=== PATIENT | female | born 1955 | race Caucasian/White ===

== ENCOUNTER → 2017-02-26 | Outpatient (CLI) | payer OTHER ==
--- NOTE | 2017-02-26 17:02 | RAD ---
Pelvic ultrasound to include transabdominal and transvaginal imaging 02/26/2017 Clinical history: Pelvic pain with heavy vaginal bleeding and clot formation. Technique: Using the distended urinary bladder as a sonographic window, a real-time ultrasound examination of the pelvis was performed. Additionally in an attempt to better evaluate the uterus and adnexa, a transvaginal ultrasound study was performed. Multiple images were obtained. Findings: The uterus is mildly enlarged measuring 12.7 x 8.7 x 5.8 cm in longitudinal, transverse, and AP dimensions. The endometrial echo complex is difficult to evaluate due to the presence of complex fluid within the endometrial canal which measures 2.8 cm in thickness. There appears to be dependent blood products within the fluid. No focal abnormality of the uterus is seen. Both ovaries are within normal limits in size and echogenicity. The right ovary measures 2.4 x 2.0 x 1.6 cm in size. The left upper measures 2.3 x 2.3 x 2.0 cm in size. No adnexal mass is seen. No free fluid is noted. Impression: The uterus is mildly enlarged. The endometrial echo complex is difficult to evaluate due to the presence of fluid and blood products within the endometrial canal.
== END | disposition home or self-care (01) ==
LOC: US 14:13
PROVIDERS: ATTEND Nurse Practitioner Family
DX: N85.2 Hypertrophy of uterus (principal); N93.8 Other specified abnormal uterine and vaginal bleeding
CPT/HCPCS: 76830; 76856

== ENCOUNTER → 2019-11-25 | Outpatient (CLI) | payer MEDICAID ==
--- NOTE | 2019-11-25 14:20 | RAD ---
Right lower extremity venous real time grayscale, color and spectral duplex ultrasound was performed. History: Right-sided leg pain with swelling Comparison: None The right common femoral, femoral, and popliteal veins demonstrate anechoic lumina, full compressibility, augmentable waveforms, and cephalad color Doppler flow. The posterior tibial are also patent. Normal flow is also seen in the cephalad portion of the saphenous vein. Impression: No evidence of DVT in the right lower extremity. Electronically signed by: Mark Motta MD (11/25/2019 2:18 PM) [facility]
== END | disposition home or self-care (01) ==
LOC: US 13:09
PROVIDERS: ATTEND Family Medicine
DX: M79.604 Pain in right leg (principal); I99.9 Unspecified disorder of circulatory system
CPT/HCPCS: 93971

== ENCOUNTER 2020-06-12 22:30 | Inpatient (IN) | payer MEDICARE, MEDICAID ==
[~2020-06-12] VITALS: Ht 167.6 cm; Wt 129.3 kg
[2020-06-12 23:55] VITALS: BP 121/88
[2020-06-13] MEDS ORDERED: CYAN500T17 PO (01:40)
[2020-06-13] MEDS ORDERED: ASCO500C PO (01:40)
[2020-06-13] MEDS ORDERED: LISI10TA2 PO (01:40)
[2020-06-13] MEDS ORDERED: DOCU-109 PO (01:40)
[2020-06-13] MEDS ORDERED: FURO-69 PO (01:40)
[2020-06-13] MEDS ORDERED: ATOR20TA PO (01:40)
[2020-06-13] MEDS ORDERED: ASPI81TA59 PO (01:40)
[2020-06-13] MEDS ORDERED: FLUO20CA16 PO (01:40)
[2020-06-13] MEDS ORDERED: UMEC1DIS IH (01:40)
[2020-06-13] MEDS ORDERED: METF500S5 PO (01:40)
[2020-06-13] MEDS ORDERED: ALBU0.63 NEB (01:40)
[2020-06-13] MEDS ORDERED: MELA1TAB9 PO (01:40)
[2020-06-13] MEDS ORDERED: CHOL500021 PO (01:40)
[2020-06-13] MEDS ORDERED: CELE100C PO (01:40)
[2020-06-13] MEDS ORDERED: POTA10TA5 PO (01:40)
[2020-06-13] MEDS ORDERED: FERR325T14 PO (01:40)
[2020-06-13] MEDS ORDERED: IPRATRPIUM/ALBUTEROL 0.5/2.5MG 3 ML NEBU. ONE (04:26)
[2020-06-13] MEDS: IPRATRPIUM/ALBUTEROL 0.5/2.5MG 3 ML NEBU. NEB SCH ×4 (04:35→20:48)
[2020-06-13] MEDS: methylPREDNISolone SOD SUCC PF 40 MG/ML VIAL. IV SCH ×3 (06:31→21:23)
[2020-06-13 06:40] VITALS: BP 107/69
[2020-06-13] MEDS: LISINOPRIL 10 MG TABLET PO SCH (09:11)
[2020-06-13] MEDS: FLUoxetine HCL 20 MG CAPSULE PO SCH (09:11)
[2020-06-13] MEDS: metFORMIN 500 MG TABLET PO SCH ×2 (09:11→17:52)
[2020-06-13] MEDS: ASPIRIN CHEWABLE 81 MG TABLET. PO SCH (09:11)
--- NOTE | 2020-06-13 09:22 | HP ---
ADMIT DATE: 06/12/2020 ATTENDING PHYSICIAN: Dr. Quan. CHIEF COMPLAINT: Shortness of breath. HISTORY OF PRESENT ILLNESS: The patient is a 64-year-old female who lives independently in an apartment in [facility]. She has end-stage oxygen dependent COPD, for the last 2 years, she is on continuous supplemental oxygen 2 liters by nasal cannula with an oxygen concentrator and portable device. She developed new onset for 24 hours, increasing shortness of breath, dyspnea with minimal exertion, dry nonproductive cough. No fevers, chills or exposures. She was seen in the Emergency Department at [facility]. The ER physician there evaluated her. X-rays demonstrated mild cardiomegaly, no acute infiltrates. Lab work was fairly unremarkable. She was not febrile. She was diagnosed with an exacerbation of COPD and acute on chronic respiratory failure. She recommended hospitalization since last month. [facility] has closed. They usually transfer the patient to [facility] on the [place]. The patient wanted to stay close to her home and therefore I got a call from the Emergency Room doctor, her name was Dr. Lieberman, requesting transfer here for inpatient care. We are grateful for the kind referral. When I saw her, she was breathing a little better. Her lungs had diminished breath sounds. I reviewed her chart. She is admitted then with acute on chronic respiratory failure and exacerbation of COPD. PAST MEDICAL HISTORY: Significant for smoking history up to 4 years ago. She has essential hypertension, degenerative arthritis, morbid obesity, questionable history of cardiac issues. ALLERGIES: She has no known drug allergies. CURRENT MEDICINES: Include albuterol, vitamin C, aspirin, Lipitor, Celebrex, cholecalciferol, cyanocobalamin, docusate, iron, Prozac 20 mg daily, Lasix, lisinopril, melatonin, metformin, potassium and Anoro Ellipta. SOCIAL HISTORY: No alcohol use. She smoked cigarettes up to 4 years ago. She denied any secondhand cigarette exposure. FAMILY HISTORY: Mom at age 74 of Alzheimer's disease. Father of pancreatic cancer. She is single. She is disabled. She lives alone in [address] housing. She has 2 children that are grown. REVIEW OF SYSTEMS: Significant for the oxygen dependency. She does not get around too much. A sister took her out shopping for groceries. No other recent travel. No fevers or chills. She has some orthopnea. She denied any recent exposure to COVID-19. All other systems reviewed and turned to be negative. PHYSICAL EXAMINATION: GENERAL: When I saw her, this is a pleasant female who was fairly alert. INITIAL VITAL SIGNS: Showed a blood pressure 121/88, pulse is 89 and regular, temperature 98.1 degrees Fahrenheit, oxygen saturation 98% on 3 liters nonrebreather mask. HEENT: Head is without trauma. Pupils are reactive. Sclerae nonicteric. Oropharynx is clear. NECK: Supple, no bruits. LUNGS: Good air movement. Minimal wheezing noted in upper airways. CARDIOVASCULAR: Showed distant heart tones. No obvious gallops. Peripheral pulses are palpable and full. ABDOMEN: Morbidly obese, protuberant, large pannus. No organomegaly. Bowel sounds were hypoactive. EXTREMITIES: Show trace edema. NEUROLOGIC: Focally intact. SKIN: Warm and dry. LABORATORY DATA: X-ray studies and labs were reviewed from [facility]. ASSESSMENT: 1. This 64-year-old female has acute on chronic respiratory failure. 2. Oxygen-dependent chronic obstructive pulmonary disease. 3. Morbid obesity. 4. Essential hypertension. 5. Type 2 diabetes. 6. Degenerative arthritis. 7. Essential hypertension. PLAN: 1. Admit to the inpatient unit. 2. Nebulizer therapy continued. 3. Empiric antibiotics. 4. Empiric Solu-Medrol. 5. We will monitor her blood sugars accordingly. HAWA QUAN MD DR: TRICIA/diego JOB#: [id number] / [id number] PASHA Kate MD
[2020-06-13 11:37] VITALS: BP 119/74
[2020-06-13 15:00] VITALS: BP 112/65
[2020-06-13 19:58] VITALS: BP 127/77
[2020-06-13] MEDS: MELATONIN 3 MG TABLET PO SCH (21:23)
[2020-06-13] MEDS: ATORVASTATIN CALCIUM 20 MG TABLET PO SCH (21:23)
[2020-06-14] MEDS: IPRATRPIUM/ALBUTEROL 0.5/2.5MG 3 ML NEBU. NEB SCH ×4 (05:16→20:20)
[2020-06-14 05:18] VITALS: BP 131/82
[2020-06-14] MEDS: methylPREDNISolone SOD SUCC PF 40 MG/ML VIAL. IV SCH (06:02)
[2020-06-14] MEDS: FLUoxetine HCL 20 MG CAPSULE PO SCH (08:10)
[2020-06-14] MEDS: metFORMIN 500 MG TABLET PO SCH ×2 (08:10→16:23)
[2020-06-14] MEDS: LISINOPRIL 10 MG TABLET PO SCH (08:10)
[2020-06-14] MEDS: ASPIRIN CHEWABLE 81 MG TABLET. PO SCH (08:10)
[2020-06-14] MEDS ORDERED: ALPRAZolam 0.5 MG TABLET PO PRN (09:15)
--- NOTE | 2020-06-14 09:27 | PN ---
DATE: 06/14/2020 ATTENDING PHYSICIAN: Dr. Quan. CHIEF COMPLAINT: Shortness of breath. SUBJECTIVE: The patient is doing better. She is less dyspneic. She still has a strong anxiety component regarding the stress and underlying depression. The Ativan yesterday has helped. OBJECTIVE FINDINGS: VITAL SIGNS: Blood sugar today is 288 mg/dL due to the Solu-Medrol ordered for her lungs. This will be curtailed. Her blood pressure is 131/82, pulse is 72 and regular, temperature 98.4 degrees Fahrenheit, and her oxygen saturations are at 96% on 2 liters by nasal cannula. HEENT: Head is without trauma. Pupils are reactive. Sclerae nonicteric. Oropharynx clear. NECK: Supple. LUNGS: The wheezing has subsided. She has fairly good air movement. There is no rhonchi. CARDIOVASCULAR: Showed distant heart tones. No obvious gallops. Peripheral pulses are palpable and full. ABDOMEN: Morbidly obese, protuberant. No organomegaly. Bowel sounds are hypoactive. EXTREMITIES: Showed no cyanosis or edema. NEUROLOGIC: Focally intact. SKIN: Warm and dry. ASSESSMENT: 1. A 64-year-old female with acute on chronic respiratory failure. 2. Oxygen-dependent chronic obstructive pulmonary disease. 3. Morbid obesity. 4. Essential hypertension. 5. Type 2 diabetes. 6. Depression with anxiety. PLAN: 1. Continue antibiotics and breathing treatment as ordered. 2. Add Xanax. 3. Discontinue Solu-Medrol. 4. We will monitor her sugars. 5. Followup chest x-ray. 6. Tentative discharge plans tomorrow. HAWA QUAN MD DR: TRICIA/diego JOB#: [id number] / [id number] PASHA Kate MD
[2020-06-14] MEDS: ALPRAZolam 0.5 MG TABLET PO SCH ×3 (10:35→20:46)
[2020-06-14 11:15] VITALS: BP 119/71
--- NOTE | 2020-06-14 13:31 | RAD ---
EXAM: PORTABLE CHEST 1V INDICATION: Reason: ACUTE ON CHRONIC RESPIRATORY FAILURE / Spl. Instructions: / History: . TECHNIQUE: Single view COMPARISON: None FINDINGS: Heart is mildly enlarged. The great vessels appear unremarkable. There is no hilar or mediastinal mass. Lungs show minimal pulmonary vascular congestion, with linear opacities of the right lung base.. There is no pleural effusion or pneumothorax. There are no significant osseous abnormalities. IMPRESSION: Cardiomegaly with pulmonary vascular congestion and linear opacities at the right lung base. Consider follow-up to resolution. Electronically signed by: John Vasquez MD (06/14/2020 1:28 PM) [id number]
[2020-06-14 15:14] VITALS: BP 114/65
[2020-06-14 18:31] VITALS: BP 133/70
[2020-06-14] MEDS: MELATONIN 3 MG TABLET PO SCH (20:46)
[2020-06-14] MEDS: LACTOBACILLUS RHAMNOSUS GG 1 CAPSULE. PO SCH (20:47)
[2020-06-14] MEDS: ATORVASTATIN CALCIUM 20 MG TABLET PO SCH (20:47)
[2020-06-15] MEDS: IPRATRPIUM/ALBUTEROL 0.5/2.5MG 3 ML NEBU. NEB SCH ×2 (05:30→11:03)
[2020-06-15 06:00] LABS: CALCIUM 8.5 mg/dL (8.5-10.1); CREATININE 0.8 mg/dL (0.6-1.0); GFR 72.4; POTASSIUM 3.6 mmol/L (3.5-5.1)
[2020-06-15 07:20] VITALS: BP 101/65
[2020-06-15 07:25] LABS: BASO % 0 % (0-3); EOS % 0 % (0-3); HEMATOCRIT 26.6 % (36.0-47.0); LYMPH # 1.7 x10^3/uL (1.0-4.8); LYMPH % 20 % (24-48); MEAN CORPUSCULAR HEMOGLOBIN 22 pg (25-35); MEAN CORPUSCULAR HGB CONC 30 g/dL (31-37); MEAN CORPUSCULAR VOLUME 73 fL (79-100); MONO # 0.8 x10^3/uL (0.0-1.1); MONO % 9 % (0-9); NEUT # 6.1 x10^3uL (1.8-7.7); NEUT % 70 % (31-73); PLATELET COUNT 357 x10^3/uL (140-400); RED BLOOD COUNT 3.63 x10^6/uL (3.50-5.40); RED CELL DISTRIBUTION WIDTH 20.3 % (11.5-14.5); WHITE BLOOD COUNT 8.7 x10^3/uL (4.0-11.0)
[2020-06-15 07:30] LABS: ALBUMIN 2.8 g/dL (3.4-5.0); TOTAL BILIRUBIN 0.1 mg/dL (0.2-1.0); TOTAL PROTEIN 6.2 g/dL (6.4-8.2)
[2020-06-15 07:40] LABS: DIRECT BILIRUBIN 0.1 mg/dL (0.0-0.2)
[2020-06-15] MEDS: FLUoxetine HCL 20 MG CAPSULE PO SCH (07:47)
[2020-06-15] MEDS: ALPRAZolam 0.5 MG TABLET PO SCH (07:48)
[2020-06-15] MEDS: LACTOBACILLUS RHAMNOSUS GG 1 CAPSULE. PO SCH (07:48)
[2020-06-15] MEDS: ASPIRIN CHEWABLE 81 MG TABLET. PO SCH (07:48)
[2020-06-15] MEDS: metFORMIN 500 MG TABLET PO SCH (07:48)
[2020-06-15] MEDS: LISINOPRIL 10 MG TABLET PO SCH (07:48)
[2020-06-15 08:37] LABS: PLT ESTIMATE ADEQUATE (ADEQUATE)
[2020-06-15 08:38] LABS: OVALOCYTES FEW
[2020-06-15 08:40] LABS: POLYCHROMASIA PRESENT
[2020-06-15 08:42] LABS: HYPOCHROMIA PRESENT
[2020-06-15 08:44] LABS: MICROCYTOSIS PRESENT
[2020-06-15 11:20] VITALS: BP 122/78
--- NOTE | 2020-06-15 14:37 | DS ---
DATE OF DISCHARGE: 06/15/2020 HOSPITAL COURSE: The patient is a 64-year-old female patient who was seen initially at [facility] Emergency Room with increasing shortness of breath, dry nonproductive cough. Her x-ray showed mild cardiomegaly with no acute infiltrate. Her lab work was unremarkable. She was afebrile and was diagnosed with exacerbation of chronic obstructive pulmonary disease with acute on chronic respiratory failure. The ER physician recommended admission to the hospital; however, the patient did not want to go to [facility] the [place] and therefore, she was admitted directly to [facility] for further evaluation and treatment. She was treated with Solu-Medrol as well as IV antibiotic and according to Dr. Baker, she was extremely anxious also and was started on Xanax. When I saw her this afternoon, she was resting slightly propped up in bed, clearly in no apparent respiratory distress. On questioning her, she denied any complaints, in particular any chest pain, denied any shortness of breath. Did complain of cough that is mostly dry. Denied any swelling of the legs. She ambulates with a walker without any difficulty. PHYSICAL EXAMINATION: GENERAL: When I examined her, she looked pale, no jaundice, cyanosis or thyromegaly. No jugular venous distention. No limb edema. VITAL SIGNS: Her heart rate was 75, blood pressure was 122/78, temperature 97.9, respiratory rate was 18 and oxygen saturation was 95% on 2 liters of oxygen. HEAD, EYES, EARS, NOSE AND THROAT: Showed normocephalic, atraumatic. NECK: Supple. HEART: Showed normal first and second heart sounds. No gallop or murmur. CHEST: Clear to auscultation. No crepitation or rhonchi. ABDOMEN: Distended, soft, nontender. NEUROLOGIC: She is awake, alert, responding appropriately. All cranial nerves are intact. EXTREMITIES: She moves extremities without difficulty. She ambulates with a walker. LABORATORY DATA: Her lab work showed a white cell count of 8700, hemoglobin 8, hematocrit 26, MCV 73 and platelet count 357,000. Her chemistry showed a serum sodium 141, potassium 3.6, chloride 102, bicarbonate 34, anion gap of 5, BUN 26, creatinine 0.8, estimated GFR was 72 mL per minute. Her glucose 115, calcium was 8.5. Total bilirubin, AST, ALT, alkaline phosphatase were normal. Total protein was 6.2, albumin was 2.8. DISCHARGE MEDICATIONS: The patient was discharged home to continue on following medications: Alprazolam 0.5 mg 3 times a day, melatonin 9 mg at bedtime, atorvastatin 20 mg at bedtime, metformin 500 mg twice a day, lisinopril 10 mg once a day, fluoxetine 20 mg daily, aspirin 81 mg once a day and nebulized albuterol and Atrovent 4 times a day. FINAL DISCHARGE DIAGNOSES: 1. Acute chronic obstructive pulmonary disease exacerbation. 2. Acute on chronic hypoxic respiratory failure. 3. Hypertension. 4. Type 2 diabetes mellitus. 5. Morbid obesity. 6. Degenerative joint disease. HORACE GARCIA MD DR: OMER/diego JOB#: [id number] / [id number]
== END 2020-06-15 15:02 | disposition home or self-care (01) | DRG 189 ==
LOC: 1 SOUTH 22:30
PROVIDERS: ADMIT Hospitalist; ATTEND Internal Medicine
DX: J96.21 Acute and chronic respiratory failure with hypoxia (principal); J44.1 Chronic obstructive pulmonary disease with (acute) exacerbation; Z68.42 Body mass index [BMI] 45.0-49.9, adult; E11.9 Type 2 diabetes mellitus without complications; E66.01 Morbid (severe) obesity due to excess calories; F41.8 Other specified anxiety disorders; I10 Essential (primary) hypertension; M19.90 Unspecified osteoarthritis, unspecified site; Z80.0 Family history of malignant neoplasm of digestive organs; Z82.0 Family history of epilepsy and other diseases of the nervous system; Z87.891 Personal history of nicotine dependence; Z99.81 Dependence on supplemental oxygen
CPT/HCPCS: 36415; 71045; 80048; 80076; 82947; 85025; 94640; 94760; J0696; J2060; J2920

== ENCOUNTER 2020-06-28 11:42 | Inpatient (IN) | payer MEDICARE, MEDICAID ==
[~2020-06-28] VITALS: Ht 167.6 cm; Wt 123.2 kg
[~2020-06-28 11:42] MED LIST: ALBU0.63 NEB; ASCO500C PO; ASPI81TA59 PO; ATOR20TA PO; CELE100C PO; CHOL500021 PO; CYAN500T17 PO; DOCU-109 PO; FERR325T14 PO; FLUO20CA16 PO; FURO-69 PO; LISI10TA2 PO; MELA1TAB9 PO; METF500S5 PO; POTA10TA5 PO; UMEC1DIS IH
--- NOTE | 2020-06-28 11:44 | PHYS DOC ---
Past History Past Medical History: CHF, COPD, CVA, Diabetes, Hypertension Past Medical History hyperlipidemia Past Surgical History: Hip Replacement Smoking: Quit Greater Than 1 Year Alcohol Use: None Drug Use: None General Adult EDM: Chief Complaint: short of air HPI: HPI: Patient is a 64 year old female who presents for evaluation of moderate shortness of air. Symptoms been progressing for the past couple of days but particular worse the past few hours. EMS was contacted when her home nurse noted that her sats were 88% on her baseline 3 L. Patient has mild to moderate conversational dyspnea on arrival as well as tachypnea. Furthermore patient is complaining of some pain and pressure in her chest. Patient has been admitted to the hospital in the past week for similar complaints. Patient has longstanding COPD and congestive heart failure. Patient has to sit up so that she can breathe more easily. Sats are 95% currently on 3 L. Patient had a negative covert swab less than 2 months ago. Patient is isolated at home at baseline. There is no known exposure to COVID Review of Systems: Review of Systems: Constitutional: Denies fever or chills Eyes: Denies change in visual acuity HENT: Denies nasal congestion or sore throat Respiratory: Denies cough moderate shortness of breath Cardiovascular: has chest pain and edema GI: Denies abdominal pain, nausea, vomiting, bloody stools or diarrhea : Denies dysuria Musculoskeletal: Denies back pain or joint pain Integument: Denies rash Neurologic: Denies headache, focal weakness or sensory changes Endocrine: Denies polyuria or polydipsia Lymphatic: Denies swollen glands Psychiatric: Denies depression or anxiety Heart Score: Risk Factors: Risk Factors: DM, Current or recent (<one month) smoker, HTN, HLP, family history of CAD, obesity. Risk Scores: Score 0 - 3: 2.5% MACE over next 6 weeks - Discharge Home Score 4 - 6: 20.3% MACE over next 6 weeks - Admit for Clinical Observation Score 7 - 10: 72.7% MACE over next 6 weeks - Early Invasive Strategies Allergies: Allergies: Allergies Coded Allergies Type Severity Reaction Last Updated Verified No Known Drug Allergies 06/13/20 No Physical Exam: PE: Constitutional: Well developed, moderate acute distress, mild toxic appearance. [] HENT: Normocephalic, atraumatic, bilateral external ears normal, oropharynx moist, no oral exudates, nose normal. [] Eyes: PERRL, EOMI, conjunctiva normal, no discharge. [] Neck: Normal range of motion, no tenderness, supple, no stridor. [] Cardiovascular:Heart rate regular rhythm, no murmur [] Lungs & Thorax: diminished breath sounds bilaterally, tachypnea and conversational dyspnea [] Abdomen: Bowel sounds normal, soft, no tenderness, no masses. [] Skin: Warm, dry, no erythema, no rash. [] Back: No tenderness, no CVA tenderness. [] Extremities: No tenderness, no cyanosis, clubbing, ROM intact, edema is present. [] Neurologic: Alert and oriented, normal motor function, normal sensory function, no focal deficits noted. [] Psychologic: flat Affect, judgement normal, mood abnormal. [] Current Patient Data: Labs: Laboratory Tests Test 06/28/20 12:02 White Blood Count 12.5 x10^3/uL Red Blood Count 4.20 x10^6/uL Hemoglobin 9.3 g/dL Hematocrit 31.3 % Mean Corpuscular Volume 74 fL Mean Corpuscular Hemoglobin 22 pg Mean Corpuscular Hemoglobin Concent 30 g/dL Red Cell Distribution Width 19.6 % Platelet Count 396 x10^3/uL Neutrophils (%) (Auto) 76 % Lymphocytes (%) (Auto) 12 % Monocytes (%) (Auto) 7 % Eosinophils (%) (Auto) 4 % Basophils (%) (Auto) 1 % Neutrophils # (Auto) 9.5 x10^3uL Lymphocytes # (Auto) 1.5 x10^3/uL Monocytes # (Auto) 0.8 x10^3/uL Eosinophils # (Auto) 0.5 x10^3/uL Basophils # (Auto) 0.1 x10^3/uL Platelet Estimate Pending Sodium Level 142 mmol/L Potassium Level 4.2 mmol/L Chloride Level 100 mmol/L Carbon Dioxide Level 32 mmol/L Anion Gap 10 Blood Urea Nitrogen 22 mg/dL Creatinine 0.9 mg/dL Estimated GFR (Cockcroft-Gault) 63.2 BUN/Creatinine Ratio 24 Glucose Level 114 mg/dL Lactic Acid Level 3.3 mmol/L Calcium Level 9.1 mg/dL Total Bilirubin 0.2 mg/dL Aspartate Amino Transf (AST/SGOT) 11 U/L Alanine Aminotransferase (ALT/SGPT) 13 U/L Alkaline Phosphatase 120 U/L Troponin I Quantitative < 0.017 ng/mL HF-Uda-M-Type Natriuretic Peptide 198 pg/mL Total Protein 7.0 g/dL Albumin 3.4 g/dL Albumin/Globulin Ratio 0.9 Current Medications Medications (Trade) Dose Ordered Sig/Tara Route PRN Reason Start Time Stop Time Status Last Admin Dose Admin Sodium Chloride (Normal Saline Flush) 10 ml QSHIFT PRN IV AFTER MEDS AND BLOOD DRAWS 06/28/20 11:45 Methylprednisolone Sodium Succinate (SOLU-Medrol 125MG VIAL) 125 mg 1X ONCE IV 06/28/20 12:00 06/28/20 12:01 DC 06/28/20 12:20 Albuterol Sulfate (Ventolin) 2.5 mg 1X ONCE NEB 06/28/20 12:30 06/28/20 12:31 DC 06/28/20 12:28 Albuterol/ Ipratropium (Duoneb) 3 ml STK-MED ONCE .ROUTE 06/28/20 12:26 06/28/20 12:26 DC Ceftriaxone Sodium 1 gm/ Sodium Chloride 50 ml @ 100 mls/hr 1X ONCE IV 06/28/20 12:40 06/28/20 13:09 Albuterol/ Ipratropium (Duoneb) 3 ml 1X ONCE NEB 06/28/20 12:45 06/28/20 12:46 DC EKG: EKG: Sinus tachycardia rate 110, leftward axis, some artifact present, otherwise unremarkable EKG [] Radiology/Procedures: Radiology/Procedures: [][address] [address] IMAGING REPORT Signed PATIENT: CARMENCITA SCHILLING ACCOUNT: [id number] : 1955 LOCATION: ER AGE: 64 SEX: F EXAM STATUS: PRE ER ORD. PHYSICIAN: MATTHEW CROSS DO REASON: short of air PROCEDURE: PORTABLE CHEST 1V Chest one view HISTORY: Shortness of breath Comparison 06/14/2020 Bilateral infiltrates appear mildly more prominent than on the June 14 study. Heart and pulmonary vasculature appear similar. No significant effusion. No pneumothorax IMPRESSION: Mild interval increase in bilateral interstitial infiltrates Electronically signed by: Oneil Downing MD (06/28/2020 12:21 PM) [id number] DICTATED AND SIGNED BY: ONEIL DOWNING MD DATE: 06/28/20 1221 CC: RAQUEL SALMON; MATTHEW CROSS DO ~ Course & Med Decision Making: Course & Med Decision Making Pertinent Labs and Imaging studies reviewed. (See chart for details) 1254 Case was discussed with Dr. Andino the hospital service. Patient will be admitted to the ICU and as requested we will give Lasix 80 mg IV. Patient will admitted for acute on chronic respiratory failure. Patient was already given Solu-Medrol as well as 2 neb treatments with some improvement of symptoms. BiPAP was put on standby. Pt is a full code. ABG showed a pH of 7.39. PCO2 53, PO2 68, 32 bicarb, 93% sat on 3 L nasal cannula Dragon Disclaimer: [facility] Disclaimer: This electronic medical record was generated, in whole or in part, using a voice recognition dictation system. Departure Departure: Impression: Primary Impression: Acute and chronic respiratory failure with hypoxia Additional Impression: COPD exacerbation Disposition: ADMITTED INPATIENT Admitting Physician: Ambrose Andino Condition: STABLE Referrals: RAQUEL SALMON (PCP) Justification of Admission: Justification of Admission: Justification of Admission Dx: Yes Respiratory Failure: Severe Resp Distress COVID-19 Assessment COVID-19 Patient Risks: Age 65 or older: No Sign of co-morbidity: Yes Exp to person + for COVID: No Exp to PUI: No Travel from affected area: No Lower respiratory symptoms: Yes Fever: No Other: No PPE Use: Full PPE with N95 mask or PAPR: Yes Critical Care Time Critical care time was 30 minutes exclusive of procedures. MATTHEW CROSS DO Jun 28, 2020 11:44
[2020-06-28] MEDS ORDERED: 0.9 % SODIUM CHLORIDE 10 ML DISP.SYRIN. IV PRN (11:45)
[2020-06-28] MEDS ORDERED: methylPREDNISolone SOD SUCC PF 125 MG/2 ML VIAL. IV ONE (12:00)
[2020-06-28 12:17] LABS: BASO # 0.1 x10^3/uL (0.0-0.2); BASO % 1 % (0-3); EOS # 0.5 x10^3/uL (0.0-0.7); EOS % 4 % (0-3); HEMATOCRIT 31.3 % (36.0-47.0); HEMOGLOBIN 9.3 g/dL (12.0-15.5); LYMPH # 1.5 x10^3/uL (1.0-4.8); LYMPH % 12 % (24-48); MEAN CORPUSCULAR HEMOGLOBIN 22 pg (25-35); MEAN CORPUSCULAR HGB CONC 30 g/dL (31-37); MEAN CORPUSCULAR VOLUME 74 fL (79-100); MONO # 0.8 x10^3/uL (0.0-1.1); MONO % 7 % (0-9); NEUT # 9.5 x10^3uL (1.8-7.7); NEUT % 76 % (31-73); PLATELET COUNT 396 x10^3/uL (140-400); RED CELL DISTRIBUTION WIDTH 19.6 % (11.5-14.5); WHITE BLOOD COUNT 12.5 x10^3/uL (4.0-11.0)
--- NOTE | 2020-06-28 12:25 | RAD ---
Chest one view HISTORY: Shortness of breath Comparison 06/14/2020 Bilateral infiltrates appear mildly more prominent than on the June 14 study. Heart and pulmonary vasculature appear similar. No significant effusion. No pneumothorax IMPRESSION: Mild interval increase in bilateral interstitial infiltrates Electronically signed by: Fabian Greenberg MD (06/28/2020 12:21 PM) [id number]
[2020-06-28] MEDS ORDERED: IPRATRPIUM/ALBUTEROL 0.5/2.5MG 3 ML NEBU. ONE (12:26)
[2020-06-28 12:28] LABS: CALCIUM 9.1 mg/dL (8.5-10.1); CREATININE 0.9 mg/dL (0.6-1.0); GFR 63.2; POTASSIUM 4.2 mmol/L (3.5-5.1)
[2020-06-28] MEDS ORDERED: ALBUTEROL SULFATE 2.5 MG/3 ML NEBU. NEB ONE (12:30)
[2020-06-28 12:40] LABS: ALBUMIN 3.4 g/dL (3.4-5.0); ALBUMIN/GLOBULIN RATIO 0.9 (1.0-1.7); TOTAL BILIRUBIN 0.2 mg/dL (0.2-1.0)
[2020-06-28] MEDS ORDERED: IPRATRPIUM/ALBUTEROL 0.5/2.5MG 3 ML NEBU. NEB ONE (12:45)
[2020-06-28 13:00] LABS: BGAS PH 7.39 (7.35-7.45)
[2020-06-28] MEDS ORDERED: FUROSEMIDE 40 MG/4 ML VIAL IVP ONE (13:00)
[2020-06-28] MEDS ORDERED: ONDANSETRON PF 4 MG/2 ML VIAL. IVP PRN (13:00)
--- NOTE | 2020-06-28 13:11 | EKG ---
[address] [address] Test Date: 2020-06-28 Test Time: 12:07:16 Pat Name: CARMENCITA SCHILLING Department: Room: Gender: F Cafe Operator: LILIBETH : 1955 Requested By: MATTHEW CROSS Order Number: [id number] Reading MD: Measurements Intervals Drayden Rate: 110 P: -30 NV: 130 QRS: -13 QRSD: 72 T: 66 QT: 306 QTc: 419 Interpretive Statements SINUS TACHYCARDIA LEFTWARD AXIS R-S TRANSITION ZONE IN V LEADS DISPLACED TO THE RIGHT OTHERWISE NORMAL ECG RI6.02 No previous ECG available for comparison
[2020-06-28] MEDS ORDERED: cefTRIAXone SODIUM 1 GM VIAL ONE (13:31)
[2020-06-28] MEDS ORDERED: IV NORMAL SALINE 50ML 50 ML ONE (13:31)
[2020-06-28 14:37] LABS: BILIRUBIN,URINE NEG (NEG); CLARITY,URINE CLEAR; COLOR,URINE YELLOW; GLUCOSE,URINE NEG (NEG); UROBILINOGEN,URINE 0.2 mg/dL (0.2 mg/dL)
[2020-06-28 14:38] LABS: BACTERIA,URINE 0 /HPF (0-FEW); NITRITE,URINE NEG (NEG); RBC,URINE OCC /HPF (0-2); SQUAMOUS EPITHELIAL CELL,UR MOD /LPF; WBC,URINE OCC /HPF (0-4)
[2020-06-28 15:00] VITALS: BP 120/63
[2020-06-28] MEDS: ALBUTEROL SULFATE 2.5 MG/3 ML NEBU. NEB SCH ×2 (16:00→20:50)
--- NOTE | 2020-06-28 16:27 | HP ---
ADMIT DATE: 06/28/2020 ATTENDING PHYSICIAN: Dr. Quan. CHIEF COMPLAINT: Shortness of breath. HISTORY OF PRESENT ILLNESS: The patient is a 64-year-old female well known to us from her previous admission just 2 weeks ago. She has morbid obesity as well as COPD. EMS was called. She developed significant dyspnea, feeling very tight. EMS personnel noted that her oxygen saturation was only 88% on supplemental oxygen. She was sent to the ED. She has no insight about volume restriction. Her chest x-ray in the ED showed that she has cardiomegaly with vascular congestion. She does not keep daily weights. She was given a dose of Lasix, started on nebulizer therapy. By the time I saw her, she was fairly alert. She was similar to the last time we admitted her for an exacerbation of COPD. Right now, she denies any continued tobacco use, but whether this is true remains to be seen. PAST MEDICAL HISTORY: Significant for morbid obesity, COPD, diabetes, hypertension and volume overload. She was discharged from this hospital on 12/16 on the last admission. CURRENT MEDICATIONS: Reviewed. She was taking ferrous sulfate, docusate, vitamin D3, Lipitor, aspirin, albuterol, Lasix only 20 mg daily, lisinopril, metformin, potassium, Zofran and Anoro Ellipta. ALLERGIES: She has no known drug allergies. SOCIAL HISTORY: She had been a smoker up to supposedly 4 years ago. She denies any alcohol use. She is single, lives independently in an apartment in [facility]. FAMILY HISTORY: Noncontributory. REVIEW OF SYSTEMS: Significant for orthopnea, dyspnea on minimal exertion. No COVID exposure. No fevers or chills. She has had a dry nonproductive cough. All other systems reviewed and turned to be negative. PHYSICAL EXAMINATION: GENERAL: I saw her. This is a pleasant, middle-aged female. INITIAL VITAL SIGNS: Showed a blood pressure 143/100. Her pulse was 107 and regular, respirations 23 per minute. She was afebrile, oxygen saturation 91% on 3 liters nasal cannula. HEENT: Head is without trauma. Pupils are reactive. Sclerae nonicteric. The oropharynx is clear. NECK: Supple. Because of her girth, I could not assess any venous distention. LUNGS: Diffuse crackles at the bases. CARDIOVASCULAR: Showed distant heart tones. No gallops. Peripheral pulses are palpable and full. ABDOMEN: Obese, protuberant. No organomegaly. Bowel sounds are hypoactive. EXTREMITIES: Show 2+ pitting edema of the lower extremities. SKIN: Warm and dry. NEUROLOGIC: Focally intact. Speech is fluent. She had no focal deficits. Chest x-ray done in the ED showed cardiomegaly and bilateral interstitial infiltrates, certainly consistent with volume overload. LABORATORY DATA: Her hemoglobin was 9.3 g/dL with white count of 12,500. Potassium is 4.2 mEq. Sodium 142, creatinine 0.9 mg percent, nonfasting blood sugar 114 mg/dL. Cardiac enzymes negative for myocardial necrosis. BNP was 198. ASSESSMENT: 1. A 64-year-old female with symptomatic dyspnea. 2. Acute on chronic respiratory failure. 3. Morbid obesity. 4. Hypertension. 5. Probable hypertensive heart disease. 6. Chronic obstructive pulmonary disease. 7. Type 2 diabetes. PLAN: 1. Admit to the inpatient unit. 2. Telemetry monitoring. 3. Diuresis. 4. Daily weights with 1200 mL fluid restriction. 5. Serial chemistries. 6. Echocardiogram. 7. Continue preload and afterload reduction. 8. Diabetic diet. 9. Cardiology consultation in the morning. HAWA QUAN MD DR: TRICIA/diego JOB#: [id number] / [id number] PASHA Kate MD
[2020-06-28 16:29] LABS: ANISOCYTOSIS SLIGHT; HYPOCHROMIA MOD; MICROCYTOSIS SLIGHT; PLT ESTIMATE ADEQUATE (ADEQUATE)
[2020-06-28] MEDS ORDERED: NON FORMULARY ITEM (Albuterol Sulfate (Albuterol Sulfate Neb Soln) 1 VIAL) NEB SCH (17:00)
[2020-06-28] MEDS: metFORMIN 500 MG TABLET PO SCH (17:00)
[2020-06-28] MEDS ORDERED: NON FORMULARY ITEM (Umeclidinium Brm/Vilanterol Tr (Anoro Ellipta 62.5-25 Mcg Inh) 1 EACH) IH SCH (17:00)
[2020-06-28 19:49] VITALS: BP 142/80
[2020-06-28] MEDS: BUDESONIDE 0.5 MG/2 ML NEBU NEB SCH (20:50)
[2020-06-28] MEDS: ATORVASTATIN CALCIUM 20 MG TABLET PO SCH (20:50)
[2020-06-28 22:57] VITALS: BP 96/61
[2020-06-29] MEDS: ALBUTEROL SULFATE 2.5 MG/3 ML NEBU. NEB SCH ×4 (05:20→20:59)
[2020-06-29 06:20] VITALS: BP 140/90
--- NOTE | 2020-06-29 06:28 | NUR ---
Nursing Note The patient was located in her room laying in bed when this nurse took over care of the patient. The patient was calm and cooperative during interactions with this nurse. The patients vitals were stable and the patient reported no pain throughout the night. The patients lungs were clear, heart sounds regular and bowels active. The patient has a 20g IV in her right AC that is patent. The patient has been pleasant and interactive with this nurse throughout the night. The patient is currently laying in bed awake.
[2020-06-29] MEDS: POTASSIUM CHLORIDE 10 MEQ TABLET.ER. PO SCH (08:09)
[2020-06-29] MEDS: DOCUSATE SODIUM 100 MG CAPSULE PO SCH (08:10)
[2020-06-29] MEDS: FLUoxetine HCL 20 MG CAPSULE PO SCH (08:10)
[2020-06-29] MEDS: FERROUS SULFATE 325 MG TABLET. PO SCH (08:10)
[2020-06-29] MEDS: metFORMIN 500 MG TABLET PO SCH ×2 (08:10→17:26)
[2020-06-29] MEDS: ASPIRIN CHEWABLE 81 MG TABLET. PO SCH (08:10)
[2020-06-29] MEDS: LISINOPRIL 10 MG TABLET PO SCH (08:10)
[2020-06-29] MEDS ORDERED: FUROSEMIDE 100 MG/10 ML VIAL IVP SCH (09:00)
--- NOTE | 2020-06-29 09:20 | NUR ---
Not comfortable giving 100 of lasix and will ask hospitalist during rounds. New hospitalist today
[2020-06-29] MEDS: BUDESONIDE 0.5 MG/2 ML NEBU NEB SCH ×2 (09:28→20:59)
--- NOTE | 2020-06-29 09:56 | NUR ---
IP: patient PUI for COVID -19 requires contact and airborne precautions.
[2020-06-29 11:32] VITALS: BP 126/77
[2020-06-29] MEDS: FUROSEMIDE 40 MG/4 ML VIAL IVP SCH (15:59)
[2020-06-29] MEDS: IPRATRPIUM/ALBUTEROL 0.5/2.5MG 3 ML NEBU. NEB SCH ×2 (16:00→20:00)
--- NOTE | 2020-06-29 17:03 | CARD ---
MR#: [id number] Date of Study: 06/29/2020 Ordering Physician: HAWA QUAN, Referring Physician: HAWA QUAN, Tech: Meg Pacheco RDCS APPROVED REPORT EXAM: Two-dimensional and M-mode echocardiogram with Doppler and color Doppler. Other Information Quality : Technically Limited Technically limited study due to morbid obesity INDICATION Congestive Heart Failure RISK FACTORS Hypertension Obesity Diabetes 2D DIMENSIONS RVDd3.3 (2.9-3.5cm)Left Atrium(2D)3.2 (1.6-4.0cm) IVSd0.9 (0.7-1.1cm)Aortic Root(2D)2.7 (2.0-3.7cm) LVDd5.2 (3.9-5.9cm)PWd0.9 (0.7-1.1cm) LVDs4.3 (2.5-4.0cm)FS (%) 30.0 % SV45.8 mlLVEF(%)60.0 (>50%) Mitral Valve MV E Hafstxiu63.7cm/sMV DECEL [id number] MV A Xrjyxlas72.1cm/sE/A Ratio0.8 Tricuspid Valve TR P. [id number]/sRAP [id number] TR Peak Gr.[id number] LEFT VENTRICLE The left ventricle is normal size. There is normal left ventricular wall thickness. The left ventricu lar systolic function is normal and the ejection fraction is within normal range. The Ejection Fracti on is 55-60%. There is normal LV segmental wall motion. Transmitral Doppler flow pattern is Grade I-a bnormal relaxation pattern. RIGHT VENTRICLE The right ventricle is normal size. The right ventricular systolic function is normal. ATRIA The left atrium size is normal. The right atrium size is normal. The interatrial septum is intact wit h no evidence for an atrial septal defect or patent foramen ovale as noted on 2-D or Doppler imaging. AORTIC VALVE The aortic valve is not well visualized. Doppler and Color Flow revealed no significant aortic regurg itation. There is no significant aortic valvular stenosis. MITRAL VALVE The mitral valve is normal in structure and function. There is no evidence of mitral valve prolapse. There is no mitral valve stenosis. Doppler and Color Flow revealed no mitral valve regurgitation note d. TRICUSPID VALVE The tricuspid valve is normal in structure and function. Doppler and Color Flow revealed trace tricus pid regurgitation. There is no tricuspid valve stenosis. PULMONIC VALVE The pulmonic valve is not well visualized. Doppler and Color Flow revealed no pulmonic valvular regur gitation. There is no pulmonic valvular stenosis. GREAT VESSELS The aortic root is normal in size. The ascending aorta is not well seen. The IVC is normal in size an d collapses >50% with inspiration. PERICARDIAL EFFUSION There is no evidence of significant pericardial effusion. Critical Notification Critical Value: No <Conclusion> The left ventricular systolic function is normal and the ejection fraction is within normal range. Th e Ejection Fraction is 55-60%. There is normal LV segmental wall motion. Signed by : Shelton Marx, Electronically Approved : 06/29/2020 17:02:44
[2020-06-29 17:11] VITALS: BP 108/62
--- NOTE | 2020-06-29 18:49 | PN ---
DATE: 06/29/2020 SUBJECTIVE: The patient was resting slightly propped up in bed, in no apparent respiratory distress. She is awake, alert. Denied any chest pain. She did complain of shortness of breath and cough. Denied any chills, rigors, or fever. Denied any paroxysmal nocturnal dyspnea. Denied any swelling of her legs. PHYSICAL EXAMINATION: GENERAL: When I examined her, she looked well and was clearly in no apparent respiratory distress. No pallor, jaundice, cyanosis or thyromegaly. No jugular venous distention. No limb edema. VITAL SIGNS: Her heart rate was 75, blood pressure 140/90, temperature was 97.5, respiratory rate 20, and oxygen saturation was 96% on 3 liters of oxygen by nasal cannula. HEAD, EYES, EARS, NOSE AND THROAT: Showed normocephalic, atraumatic. NECK: Supple. CARDIAC: Normal first and second heart sounds. No gallop, rub or murmur. CHEST: Clear to auscultation. No crepitation or rhonchi. She has very few scattered rhonchi anteriorly. I could not appreciate any crepitation. ABDOMEN: Distended, soft, nontender. NEUROLOGIC: She is awake, alert, responding appropriately. All cranial nerves intact. She moves extremities without difficulty. She ambulates with a walker. Her intake and output were incompletely recorded. LABORATORY DATA: As of yesterday, her white cell count was 12,500, hemoglobin 9, hematocrit 31, MCV 74, and platelet count of 396,000. Her chemistry as of yesterday showed a serum sodium 142, potassium 4.2, chloride 100, bicarbonate 32, anion gap of 10, BUN 22, creatinine 0.9, estimated GFR was 63 mL per minute. Her glucose 114. Lactic acid was initially 3.3, up to 5.5, calcium was 9.1. Total bilirubin, AST, ALT, alkaline phosphatase slightly elevated. Her beta natriuretic peptide was 198. Total protein 7, albumin 3.4. Urinalysis essentially unremarkable. Her coronavirus by PCR was not detected. Her chest x-ray showed bilateral infiltrate, appears mildly more prominent than on 06/14 study. Heart and pulmonary vasculature appears normal. No significant effusion or pneumothorax. The patient was admitted with: 1. Acute on chronic respiratory failure. 2. Morbid obesity. 3. Hypertension. 4. Probable chronic diastolic heart failure. 5. Chronic obstructive pulmonary disease. 6. Type 2 diabetes. PLAN: Plan is to continue with all her medications. My plan is to continue with the nebulized albuterol and Atrovent 4 times a day and albuterol in between, cut down the Lasix to 40 mg twice a day, and repeat her labs tomorrow. HORACE GARCIA MD DR: OMER/diego JOB#: [id number] / [id number]
[2020-06-29 21:00] VITALS: BP 118/76
[2020-06-29] MEDS: MELATONIN 3 MG TABLET PO PRN (21:04)
[2020-06-29] MEDS: ATORVASTATIN CALCIUM 20 MG TABLET PO SCH (21:04)
[2020-06-30] MEDS: ALBUTEROL SULFATE 2.5 MG/3 ML NEBU. NEB SCH ×4 (05:24→20:19)
[2020-06-30 05:31] VITALS: BP 107/62
--- NOTE | 2020-06-30 06:12 | NUR ---
Pt is COVID-19 negative. Pt taken out of isolation. Pt is feeling better after neb treatments. O2 sats in the upper 90's on 3L via NC. Pt also reports resting comfortably through night after PRN melatonin given to aid sleep.
[2020-06-30 06:24] LABS: BASO # 0.1 x10^3/uL (0.0-0.2); BASO % 1 % (0-3); EOS # 0.2 x10^3/uL (0.0-0.7); EOS % 3 % (0-3); HEMATOCRIT 28.3 % (36.0-47.0); HEMOGLOBIN 8.4 g/dL (12.0-15.5); LYMPH # 2.2 x10^3/uL (1.0-4.8); LYMPH % 27 % (24-48); MEAN CORPUSCULAR HEMOGLOBIN 22 pg (25-35); MEAN CORPUSCULAR HGB CONC 30 g/dL (31-37); MEAN CORPUSCULAR VOLUME 74 fL (79-100); MONO # 0.6 x10^3/uL (0.0-1.1); MONO % 8 % (0-9); NEUT # 4.9 x10^3uL (1.8-7.7); NEUT % 61 % (31-73); PLATELET COUNT 364 x10^3/uL (140-400); RED CELL DISTRIBUTION WIDTH 19.9 % (11.5-14.5); WHITE BLOOD COUNT 8.1 x10^3/uL (4.0-11.0)
[2020-06-30 06:39] LABS: ALBUMIN 2.8 g/dL (3.4-5.0); ALBUMIN/GLOBULIN RATIO 0.8 (1.0-1.7); CALCIUM 8.4 mg/dL (8.5-10.1); POTASSIUM 3.8 mmol/L (3.5-5.1); TOTAL BILIRUBIN 0.2 mg/dL (0.2-1.0); TOTAL PROTEIN 6.5 g/dL (6.4-8.2)
[2020-06-30] MEDS: IPRATRPIUM/ALBUTEROL 0.5/2.5MG 3 ML NEBU. NEB SCH ×4 (06:58→20:00)
[2020-06-30 08:00] VITALS: BP 111/92
[2020-06-30] MEDS: FERROUS SULFATE 325 MG TABLET. PO SCH (08:15)
[2020-06-30] MEDS: metFORMIN 500 MG TABLET PO SCH ×2 (08:15→17:15)
[2020-06-30] MEDS: ASPIRIN CHEWABLE 81 MG TABLET. PO SCH (08:15)
[2020-06-30] MEDS: FLUoxetine HCL 20 MG CAPSULE PO SCH (08:15)
[2020-06-30] MEDS: DOCUSATE SODIUM 100 MG CAPSULE PO SCH (08:15)
[2020-06-30] MEDS: LISINOPRIL 10 MG TABLET PO SCH (08:15)
[2020-06-30] MEDS: POTASSIUM CHLORIDE 10 MEQ TABLET.ER. PO SCH (08:16)
[2020-06-30] MEDS: FUROSEMIDE 40 MG/4 ML VIAL IVP SCH ×2 (08:16→14:11)
[2020-06-30] MEDS: BUDESONIDE 0.5 MG/2 ML NEBU NEB SCH ×2 (10:56→20:20)
[2020-06-30 11:39] VITALS: BP 127/79
--- NOTE | 2020-06-30 14:49 | PN ---
DATE: 06/30/2020 SUBJECTIVE: The patient is resting, slightly propped up in bed, in no apparent distress. She has had her Trilogy and she is apparently comfortable with it. I spoke with the dairy lab technician and he recommended to keep her overnight here so that our respiratory therapist monitor her and she will discharge her home tomorrow. PHYSICAL EXAMINATION: GENERAL: When I examined her, she looked well, definitely in no respiratory distress, slightly pale. No jaundice, cyanosis or thyromegaly. No jugular venous distention. No limb edema. VITAL SIGNS: Her heart rate was 87, blood pressure was 127/79, temperature was 98.5, respiratory rate was 20, and oxygen saturation was 98% on 3 liters of oxygen. HEAD, EYES, EARS, NOSE AND THROAT: Showed normocephalic, atraumatic. NECK: Supple. HEART: Showed normal first and second heart sounds. No gallop, rub or murmur. CHEST: Clear to auscultation. No crepitation or rhonchi. ABDOMEN: Distended, soft, nontender. NEUROLOGIC: She was awake, alert, responding appropriately. All cranial nerves intact. She moves extremities without difficulty. She ambulates with a walker. Her intake over the last 24 hours was 950, output was 800. LABORATORY DATA: As of this morning, her white cell count was 8100, hemoglobin 8.4, hematocrit 28, MCV 74, and platelet count of 364,000. Her chemistry showed a serum sodium 143, potassium 3.8, chloride 102, bicarbonate 36, anion gap of 5, BUN 25, creatinine 1, estimated GFR was 56 mL per minute. Her glucose 107, lactic acid was down to 2. Calcium was 8.4. Total bilirubin, AST, ALT, alkaline phosphatase were normal. Total protein 6.5, albumin was 2.8. Her blood cultures so far showed no growth after 2 days. ASSESSMENT: She actually had had an echocardiogram done, which showed the left ventricular systolic function is normal and ejection fraction is within normal range, the ejection fraction is 55-60%. There is normal left ventricular segmental wall motion. ASSESSMENT: 1. Zbszs-eq-icxkexr hypercapnic respiratory failure. 2. Morbid obesity. 3. Hypertension. 4. Probable chronic diastolic heart failure. 5. Chronic obstructive pulmonary disease. 6. Type 2 diabetes mellitus. 7. Microcytic hypochromic anemia. PLAN: My plan is to continue with all her current medications. She was fitted with the mask for the Trilogy and she apparently likes it, so we will keep her overnight and tomorrow, she will be discharged home. I will arrange for her to have to check her serum iron, TIBC, and serum ferritin and we will advise her to follow with her primary care physician. HORACE GARCIA MD DR: OMER/diego JOB#: [id number] / [id number]
[2020-06-30 15:37] VITALS: BP 93/49
--- NOTE | 2020-06-30 17:44 | NUR ---
Assumed care of pt at 0700, pt is a/ox4 no complaints of pain however states she "feels a little dizzy". Lungs are clear in all four lobes; pt ambulates to bedside commode with no difficulties. Trilogy came this afternoon to set up her cpap for home, pt is comfortable with the settings. Will continue to monitor.
[2020-06-30 19:28] VITALS: BP 111/58
[2020-06-30] MEDS: ATORVASTATIN CALCIUM 20 MG TABLET PO SCH (20:08)
[2020-06-30] MEDS: MELATONIN 3 MG TABLET PO PRN (20:08)
[2020-06-30 23:06] VITALS: BP 103/53
[2020-07-01] MEDS ORDERED: ACETAMINOPHEN 325 MG TABLET PO PRN (03:45)
--- NOTE | 2020-07-01 05:46 | NUR ---
Pt tolerated trilogy throughout much of the night. Pt reports sleeping "solid" until approx. 0345 when she awoke c/o bilateral shoulder soreness, rated 3:10. PRN tylenol given per request. Pt then switched to O2 at 3L via NC and fell back to sleep.
[2020-07-01] MEDS: ALBUTEROL SULFATE 2.5 MG/3 ML NEBU. NEB SCH ×2 (05:50→09:16)
[2020-07-01 06:15] VITALS: BP 107/61
[2020-07-01 06:27] LABS: CALCIUM 8.3 mg/dL (8.5-10.1); POTASSIUM 3.5 mmol/L (3.5-5.1)
[2020-07-01] MEDS ORDERED: FUROSEMIDE 40 MG TABLET PO SCH (09:00)
[2020-07-01] MEDS: POTASSIUM CHLORIDE 10 MEQ TABLET.ER. PO SCH (09:08)
[2020-07-01] MEDS: DOCUSATE SODIUM 100 MG CAPSULE PO SCH (09:08)
[2020-07-01] MEDS: ASPIRIN CHEWABLE 81 MG TABLET. PO SCH (09:08)
[2020-07-01] MEDS: FERROUS SULFATE 325 MG TABLET. PO SCH (09:08)
[2020-07-01] MEDS: metFORMIN 500 MG TABLET PO SCH (09:08)
[2020-07-01] MEDS: FLUoxetine HCL 20 MG CAPSULE PO SCH (09:09)
[2020-07-01] MEDS: LISINOPRIL 10 MG TABLET PO SCH (09:09)
[2020-07-01] MEDS: BUDESONIDE 0.5 MG/2 ML NEBU NEB SCH (09:16)
[2020-07-01 11:30] VITALS: BP 118/79
[2020-07-01] MEDS ORDERED: POTA20TA4 PO (14:22)
[2020-07-01] MEDS ORDERED: FURO40TA4 PO (14:22)
[2020-07-01] MEDS ORDERED: ALPR0.254 PO (14:23)
--- NOTE | 2020-07-01 14:40 | DISCH ---
HOME HEALTH DISCHARGE/MEDS DISCHARGE INFORMATION: Discharge Date: Jul 01, 2020 Final Diagnosis: acute on chronic hypercapnic respratory failure chronic diastolic chf Condition on Discharge: Stable CODE STATUS: Code Status: Full HOME HEALTH: Face to Face: I certify this patient is under my care and that I, or a nurse practitioner or physician's behavioral assistant working with me, had a face to face encounter that meets the physician face to face encounter requirements with this patient on 07/01/2020 Medical Condition(s): CHF, COPD Longterm For: Admin/Educate Injections Physical Therapy For: Evalulation/Treatment Occupational Therapy For: Evaluation/Treatment Homebound Status Met By: Extreme weakness w/ amb. POST DISCHARGE ORDERS: Activity Instructions for Disc: Resume previous activity DIET AFTER DISCHARGE: Cardiac CERTIFICATION STATEMENT: Certification Statement: Based on the above finding, I certify that this patient is confined to the home and needs intermittent penitentiary care, physical therapy and/or speech therapy, or continues to need occupational therapy.~ This patient is under my care, and I have initiated the establishment of the plan of care.~ This patient will be followed by myself or a community physician who will periodically review the plan of care. DISCHARGE MEDICATIONS: Home Meds Active Scripts Alprazolam (ALPRAZOLAM) 0.25 Mg Tablet, 1 TAB PO TID for anxiety for 30 Days, #90 TAB Prov:HORACE GARCIA MD 07/01/20 Potassium Chloride (KLOR-CON M20) 20 Meq Tab.er.prt, 1 TAB PO DAILY for lasix for 30 Days, #30 TAB 0 Refills Prov:HORACE GARCIA MD 07/01/20 Furosemide (FUROSEMIDE) 40 Mg Tablet, 1 TAB PO DAILY for chf for 30 Days, #30 TAB 5 Refills Prov:HORACE GARCIA MD 07/01/20 Reported Medications Umeclidinium Brm/Vilanterol Tr (ANORO ELLIPTA 62.5-25 MCG INH) 1 Each Disk.w.dev, 1 EACH IH QID for COPD, INH 06/13/20 Potassium Chloride (KLOR-CON 10) 10 Meq Tablet.er, 1 TAB PO DAILY for SUPPLEMENT for 30 Days, #30 TAB 0 Refills 06/13/20 Metformin HCl (Metformin HCl) 500 Mg/5 Ml Solution, 500 MG PO BID for DM, MISC 06/13/20 Melatonin (MELATONIN) 1 Mg Tablet, 10 TAB PO QHS for sleep for 30 Days, #300 TAB 0 Refills 06/13/20 Lisinopril (LISINOPRIL) 10 Mg Tablet, 1 TAB PO DAILY for HTN, #30 TAB 5 Refills 06/13/20 Fluoxetine Hcl (PROZAC) 20 Mg Capsule, 1 CAP PO DAILY for DEPRESSION, #30 CAP 1 Refill 06/13/20 Ferrous Sulfate (FERROUS SULFATE) 325 Mg Tablet, 1 TAB PO DAILY for SUPPLEMENT, #30 TAB 3 Refills 06/13/20 Docusate Sodium (COLACE) 100 Mg Capsule, 100 MG PO DAILY for CONSTIPATION, CAP 06/13/20 Cyanocobalamin (Vitamin B-12) (B-12) 500 Mcg Tablet, 1 TAB PO DAILY for SUPPLEMENT for 30 Days, #30 TAB 0 Refills 06/13/20 Cholecalciferol (Vitamin D3) (D3-50) 50,000 Unit Capsule, 1 CAP PO WEEKLY for SUPPLEMENT for 28 Days, #4 CAP 0 Refills 06/13/20 Atorvastatin Calcium (LIPITOR) 20 Mg Tablet, 20 MG PO QHS for FOR CHOLESTEROL, #30 TAB 0 Refills 06/13/20 Aspirin (Children's Aspirin) 81 Mg Tab.chew, 1 TAB PO DAILY for PREVENTATIVE for 30 Days, #30 TAB 0 Refills 06/13/20 Ascorbic Acid (VITAMIN C) 500 Mg Capsule.er, 1 CAP PO DAILY for SUPPLEMENT for 30 Days, #30 CAP 0 Refills 06/13/20 Albuterol Sulfate (ALBUTEROL SULFATE NEB SOLN) 0.63 Mg/3 Ml Vial.neb, 1 VIAL NEB QID for COPD, #150 ML 1 Refill 06/13/20 Discontinued Reported Medications Furosemide (LASIX) 20 Mg Tablet, 1 TAB PO DAILY for CHF for 30 Days, #30 TAB 0 Refills 06/13/20 HORACE GARCIA MD Jul 01, 2020 14:40
--- NOTE | 2020-07-01 15:04 | NUR ---
Dr. Pang here to see pt. Patient is ready for discharge. Spoke with Alisa with [employer], regarding pt being dc'd and starting trilegy machine at home. Reviewed all discharge instructions with pt. IV dc'd, pt assisted in getting dressed and to pov upon discharge.
--- NOTE | 2020-07-01 15:06 | DS ---
DATE OF DISCHARGE: HOSPITAL COURSE: The patient is a 64-year-old female patient who was admitted with again worsening shortness of breath. She was hypoxic despite supplemental oxygen. Her chest x-ray showed that she has cardiomegaly with vascular congestion. She was given a dose of Lasix, started her on nebulized therapy at bedtime, and she did actually very well. We did actually order the Trilogy that she actually tolerated very well and she did very well overnight and a decision was made to discharge her home to continue on oral medication, continue with Trilogy and to follow with her primary care physician. PHYSICAL EXAMINATION: VITAL SIGNS: When I examined her this afternoon, her heart rate was 87, blood pressure was 118/79, temperature 97.9, respiratory rate was 20, and oxygen saturation was 97% on 3 liters of oxygen. HEAD, EYES, EARS, NOSE AND THROAT: Showed normocephalic, atraumatic. NECK: Supple. HEART: Showed normal first and second heart sounds. No gallop, rub or murmur. CHEST: Shows central trachea, equal chest expansion, air entry, vesicular sounds. I could not appreciate any crepitation or rhonchi. ABDOMEN: Distended, soft, nontender. NEUROLOGIC: She is awake, alert, responding appropriately. All cranial nerves intact. EXTREMITIES: She moves extremities without difficulty. She ambulates with a walker. LABORATORY DATA: As of this morning showed serum sodium of 141, potassium 3.5, chloride 100, bicarbonate 35, anion gap of 6, BUN 23, creatinine 1, estimated GFR was 56 mL per minute. Her glucose 120, calcium was 8.3. Her white cell count was 8100, hemoglobin 8.4, hematocrit 28, MCV 74, and platelet count of 364,000. I did order her iron, the result of which is still pending at the time of this dictation. Her coronavirus by PCR was not detectable. DISCHARGE MEDICATIONS: She will be discharged home. She was discharged home on alprazolam 0.25 mg 3 times a day, furosemide 40 mg once a day, potassium chloride 20 mEq once a day, albuterol sulfate by nebulizer 4 times a day, ascorbic acid 500 mg once a day, aspirin 81 mg once a day, atorvastatin calcium 20 mg at bedtime, vitamin D 50,000 units once a week, Colace 100 mg daily, ferrous sulfate 325 mg daily, fluoxetine for Prozac 20 mg daily, lisinopril 10 mg once a day, melatonin 10 mg at bedtime, metformin 500 mg twice a day, potassium chloride 10 mEq once a day and Anoro Ellipta 1 inhalation 4 times a day. FINAL DISCHARGE DIAGNOSES: 1. Tbkhq-uf-fsbjism hypercapnic respiratory failure. 2. Morbid obesity with obstructive sleep apnea. 3. Hypertension. 4. Chronic diastolic congestive heart failure. 5. Chronic obstructive pulmonary disease. 6. Type 2 diabetes mellitus. 7. Microcytic hypochromic anemia. The patient was advised to follow with her primary care physician and as she has microcytic hypochromic anemia indicating she is probably losing blood somewhere, she might require upper and lower GI endoscopy. HORACE GARCIA MD DR: OMER/diego JOB#: [id number] / [id number]
[2020-07-05] MEDS ORDERED: CHOLECALCIFEROL (VITAMIN D3) 50,000 UNIT CAPSULE PO SCH (09:00)
== END 2020-07-01 15:45 | disposition home health service (06) | DRG 177 ==
LOC: ER 11:42 → ICU 13:00
PROVIDERS: ADMIT Internal Medicine; ATTEND Internal Medicine
DX: J15.6 Pneumonia due to other Gram-negative bacteria (principal); J96.21 Acute and chronic respiratory failure with hypoxia; J96.22 Acute and chronic respiratory failure with hypercapnia; I50.33 Acute on chronic diastolic (congestive) heart failure; Z68.41 Body mass index [BMI] 40.0-44.9, adult; J15.9 Unspecified bacterial pneumonia; J44.9 Chronic obstructive pulmonary disease, unspecified; D50.9 Iron deficiency anemia, unspecified; E11.9 Type 2 diabetes mellitus without complications; E66.01 Morbid (severe) obesity due to excess calories; Z20.828 Contact with and (suspected) exposure to other viral communicable diseases; G47.33 Obstructive sleep apnea (adult) (pediatric); Z96.649 Presence of unspecified artificial hip joint; E78.5 Hyperlipidemia, unspecified; I11.0 Hypertensive heart disease with heart failure; Z87.891 Personal history of nicotine dependence; Z86.73 Personal history of transient ischemic attack (TIA), and cerebral infarction without residual deficits
CPT/HCPCS: 36415; 71045; 80048; 80053; 81001; 82728; 82803; 83540; 83550; 83605; 83880; 84484; 85025; 87040; 93005; 93306; 94640; 96374; 96375; J0696; J1940; J2930; 97110; 97530; 97535; 99291-25; J7613; U0003-CS

== ENCOUNTER 2020-08-12 08:53 | Observation (INO) | payer OTHER, MEDICAID ==
[~2020-08-12] VITALS: Ht 167.6 cm; Wt 125.3 kg
[~2020-08-12 08:53] MED LIST changes: +ALPR0.254 PO; +FURO40TA4 PO; +POTA20TA4 PO
--- NOTE | 2020-08-12 09:03 | PHYS DOC ---
Past History Past Medical History: CHF, COPD, CVA, Diabetes, Hypertension Past Surgical History: Hip Replacement Additional Past Surgical Histo: Right Hip Smoking: Quit Greater Than 1 Year Alcohol Use: None Drug Use: None General Adult EDM: Chief Complaint: SHORTNESS OF BREATH HPI: HPI: Patient is a 64-year-old female who presents with a chief complaint of chest tightness and shortness of breath that began at 5 AM. Patient states that she has 5 out of 10 tightness in the chest is nonradiating worse with exertion. Patient also complains of shortness of breath. Patient denies any fever cough. Patient took 2 nebulizer treatments without much relief. Pain is described as a tightness Review of Systems: Review of Systems: Constitutional: Denies fever or chills Eyes: Denies change in visual acuity HENT: Denies nasal congestion or sore throat Respiratory: Denies cough but has shortness of breath Cardiovascular: Complains of chest pain GI: Denies abdominal pain, nausea, vomiting, bloody stools or diarrhea : Denies dysuria Musculoskeletal: Denies back pain or joint pain Integument: Denies rash Neurologic: Denies headache, focal weakness or sensory changes Endocrine: Denies polyuria or polydipsia Lymphatic: Denies swollen glands Psychiatric: Denies depression or anxiety Heart Score: HEART Score for Chest Pain: HEART Score for Chest Pain Response (Comments) Value History Moderately Suspicious 1 ECG Nonspecific Repolarizatio 1 Age >45 - < 65 1 Risk Factors >3 Risk Factors or Hx CAD 2 Troponin < Normal Limit 0 Total 5 Risk Factors: Risk Factors: DM, Current or recent (<one month) smoker, HTN, HLP, family history of CAD, obesity. Risk Scores: Score 0 - 3: 2.5% MACE over next 6 weeks - Discharge Home Score 4 - 6: 20.3% MACE over next 6 weeks - Admit for Clinical Observation Score 7 - 10: 72.7% MACE over next 6 weeks - Early Invasive Strategies Allergies: Allergies: Allergies Coded Allergies Type Severity Reaction Last Updated Verified No Known Drug Allergies 06/13/20 No Physical Exam: PE: Constitutional: Well developed, well nourished, no acute distress, non-toxic appearance. [] HENT: Normocephalic, atraumatic, bilateral external ears normal, oropharynx moist, nose normal. [] Eyes: PERRLA, EOMI, conjunctiva normal, no discharge. [] Neck: Normal range of motion, no tenderness, supple, no stridor. [] Cardiovascular:Heart rate regular rhythm, no murmur [] Lungs & Thorax: Diminished breath sounds bilaterally with faint wheezes Abdomen: , soft, no tenderness, no masses, no pulsatile masses. [] Skin: Warm, dry, no erythema, no rash. [] Back: No tenderness, no CVA tenderness. [] Extremities: No tenderness, no cyanosis, no clubbing, ROM intact, no edema. [] Neurologic: Alert and oriented X 3, normal motor function, normal sensory function, no focal deficits noted. [] Psychologic: Affect normal, judgement normal, mood normal. [] Current Patient Data: Labs: Laboratory Tests Test 08/12/20 09:00 White Blood Count 10.3 x10^3/uL Red Blood Count 3.98 x10^6/uL Hemoglobin 8.8 g/dL Hematocrit 29.9 % Mean Corpuscular Volume 75 fL Mean Corpuscular Hemoglobin 22 pg Mean Corpuscular Hemoglobin Concent 30 g/dL Red Cell Distribution Width 18.5 % Platelet Count 409 x10^3/uL Neutrophils (%) (Auto) 78 % Lymphocytes (%) (Auto) 12 % Monocytes (%) (Auto) 6 % Eosinophils (%) (Auto) 3 % Basophils (%) (Auto) 1 % Neutrophils # (Auto) 8.1 x10^3uL Lymphocytes # (Auto) 1.2 x10^3/uL Monocytes # (Auto) 0.7 x10^3/uL Eosinophils # (Auto) 0.3 x10^3/uL Basophils # (Auto) 0.1 x10^3/uL Platelet Estimate Pending Sodium Level 140 mmol/L Potassium Level 3.6 mmol/L Chloride Level 99 mmol/L Carbon Dioxide Level 32 mmol/L Anion Gap 9 Blood Urea Nitrogen 21 mg/dL Creatinine 0.9 mg/dL Estimated GFR (Cockcroft-Gault) 63.2 BUN/Creatinine Ratio 23 Glucose Level 131 mg/dL Calcium Level 9.2 mg/dL Total Bilirubin 0.3 mg/dL Aspartate Amino Transf (AST/SGOT) 10 U/L Alanine Aminotransferase (ALT/SGPT) 11 U/L Alkaline Phosphatase 113 U/L Troponin I Quantitative < 0.017 ng/mL SY-Gol-E-Type Natriuretic Peptide 157 pg/mL Total Protein 7.0 g/dL Albumin 3.4 g/dL Albumin/Globulin Ratio 0.9 Current Medications Medications (Trade) Dose Ordered Sig/Tara Route PRN Reason Start Time Stop Time Status Last Admin Dose Admin Aspirin (Aspirin Chewable) 324 mg 1X ONCE PO 08/12/20 09:15 08/12/20 09:16 DC 08/12/20 09:31 Methylprednisolone Sodium Succinate (SOLU-Medrol 125MG VIAL) 125 mg 1X ONCE IV 08/12/20 09:15 08/12/20 09:16 DC 08/12/20 09:31 Vital Signs: Vital Signs Date Time Temp Pulse Resp B/P (MAP) Pulse Ox O2 Delivery O2 Flow Rate FiO2 08/12/20 09:30 89 16 91/56 (68) 98 Room Air 08/12/20 08:53 98.3 3.0 EKG: EKG: [] EKG interpreted by me normal sinus rhythm with rate 88 left axis deviation nonspecific ST changes Radiology/Procedures: Radiology/Procedures: [][place] [address] IMAGING REPORT Signed PATIENT: CARMENCITA SCHILLING ACCOUNT: [id number] : 1955 LOCATION: ER AGE: 64 SEX: F EXAM STATUS: REG ER ORD. PHYSICIAN: BRYCE VILLANUEVA MD REASON: chest pain PROCEDURE: PORTABLE CHEST 1V PORTABLE CHEST 1V History: Chest pain Comparison: June 28, 2020 Findings: Single view of the chest is submitted. Pericardial cardiac silhouette is similar, borderline. There is no dependent pleural fluid or pneumothorax. Appearance of hazy opacity at the lung bases bilaterally may be accentuated by beam attenuation by the soft tissues. No new convincing lobar infiltrate is identified by radiograph. There is degenerative change of the acromioclavicular joints greater on the right. No pneumothorax is identified. Impression: 1. No new convincing acute radiographic abnormality is identified allowing for beam attenuation by the soft tissues. Electronically signed by: Amparo Red MD (08/12/2020 9:15 AM) [id number] DICTATED AND SIGNED BY: AMPARO RED MD DATE: 08/12/20 0915 CC: BRYCE VILLANUEVA MD; RAQUEL SALMON ~ Course & Med Decision Making: Course & Med Decision Making Pertinent Labs and Imaging studies reviewed. (See chart for details) [] Patient reassessed at 9:45 AM and stable. 64-year-old female presents with chest tightness and shortness of breath. Patient has a history of COPD and has a mild wheeze. Patient was given steroids and took nebs prior to arrival. EKG is unremarkable troponin is negative. Patient admitted for COPD and rule out NE. Patient asking for COVID testing as her son was staying with her. Dragon Disclaimer: Dragon Disclaimer: This electronic medical record was generated, in whole or in part, using a voice recognition dictation system. Departure Departure: Impression: Primary Impression: Chest tightness Additional Impression: Dyspnea Disposition: 01 HOME/RESIDENCE PRIOR TO ADM Admitting Physician: Rod Pang Condition: STABLE Referrals: RAQUEL SALMON (PCP) Justification of Admission: Justification of Admission: Justification of Admission Dx: Yes (COPD, CP) Respiratory Failure: Severe Resp Distress BRYCE VILLANUEVA MD Aug 12, 2020 09:03
[2020-08-12] MEDS ORDERED: methylPREDNISolone SOD SUCC PF 125 MG/2 ML VIAL. IV ONE (09:15)
[2020-08-12] MEDS ORDERED: ASPIRIN CHEWABLE 81 MG TABLET. PO ONE (09:15)
--- NOTE | 2020-08-12 09:19 | RAD ---
PORTABLE CHEST 1V History: Chest pain Comparison: June 28, 2020 Findings: Single view of the chest is submitted. Pericardial cardiac silhouette is similar, borderline. There is no dependent pleural fluid or pneumothorax. Appearance of hazy opacity at the lung bases bilaterally may be accentuated by beam attenuation by the soft tissues. No new convincing lobar infiltrate is identified by radiograph. There is degenerative change of the acromioclavicular joints greater on the right. No pneumothorax is identified. Impression: 1. No new convincing acute radiographic abnormality is identified allowing for beam attenuation by the soft tissues. Electronically signed by: Juan Clark MD (08/12/2020 9:15 AM) [id number]
[2020-08-12 09:21] LABS: CALCIUM 9.2 mg/dL (8.5-10.1); CREATININE 0.9 mg/dL (0.6-1.0); GFR 63.2; POTASSIUM 3.6 mmol/L (3.5-5.1)
[2020-08-12 09:23] LABS: BASO # 0.1 x10^3/uL (0.0-0.2); BASO % 1 % (0-3); EOS # 0.3 x10^3/uL (0.0-0.7); EOS % 3 % (0-3); HEMATOCRIT 29.9 % (36.0-47.0); HEMOGLOBIN 8.8 g/dL (12.0-15.5); LYMPH # 1.2 x10^3/uL (1.0-4.8); LYMPH % 12 % (24-48); MEAN CORPUSCULAR HEMOGLOBIN 22 pg (25-35); MEAN CORPUSCULAR HGB CONC 30 g/dL (31-37); MEAN CORPUSCULAR VOLUME 75 fL (79-100); MONO # 0.7 x10^3/uL (0.0-1.1); MONO % 6 % (0-9); NEUT # 8.1 x10^3uL (1.8-7.7); NEUT % 78 % (31-73); PLATELET COUNT 409 x10^3/uL (140-400); RED BLOOD COUNT 3.98 x10^6/uL (3.50-5.40); RED CELL DISTRIBUTION WIDTH 18.5 % (11.5-14.5); WHITE BLOOD COUNT 10.3 x10^3/uL (4.0-11.0)
[2020-08-12 09:33] LABS: ALBUMIN 3.4 g/dL (3.4-5.0); ALBUMIN/GLOBULIN RATIO 0.9 (1.0-1.7); TOTAL BILIRUBIN 0.3 mg/dL (0.2-1.0)
[2020-08-12] MEDS ORDERED: ONDANSETRON PF 4 MG/2 ML VIAL. IVP PRN (10:00)
[2020-08-12 10:24] LABS: PLT ESTIMATE ADEQUATE (ADEQUATE)
[2020-08-12 10:26] LABS: ANISOCYTOSIS SLIGHT; HYPOCHROMIA SLIGHT; OVALOCYTES MOD; POLYCHROMASIA MOD; TARGET CELLS FEW; TEAR DROP CELLS OCC
[2020-08-12 13:01] VITALS: BP 156/90
--- NOTE | 2020-08-12 14:53 | EKG ---
[address] [address] Test Date: 2020-08-12 Test Time: 08:52:59 Pat Name: CARMENCITA SCHILLING Department: Room: 124 A Gender: F Bottom Steep Tender: LILIBETH : 1955 Requested By: BRYCE VILLANUEVA Order Number: [id number] Reading MD: Rick Valerio Measurements Intervals [place] Rate: 88 P: 66 OK: 150 QRS: -11 QRSD: 82 T: 65 QT: 360 QTc: 439 Interpretive Statements SINUS RHYTHM LEFTWARD AXIS Electronically Signed On 08-17-2020 12:36:54 CDT by Rick Valerio
[2020-08-12] MEDS ORDERED: MELA10TA3 PO (15:42)
[2020-08-12] MEDS ORDERED: ALPR0.254 PO (15:42)
[2020-08-12 16:30] VITALS: BP 109/67
--- NOTE | 2020-08-12 16:41 | NUR ---
NSG NOTE; ADMISSION ADMIT TO ROOM 124 AT 1200 VIA CART ACCOMP BY EMS PERSONNEL PT AWOKE THIS AM WITH CHEST TIGHTNESS. STATES SHE HAD NEB TX X2 WITHOUT ANY IMPROVEMENT SO CALLED EMS PT WAS SWABBED FOR COVID 19 IN ED SO IS NOW IN [place] ISOLATION
[2020-08-12] MEDS: FLUoxetine HCL 20 MG CAPSULE PO SCH ×2 (16:45→18:17)
[2020-08-12] MEDS: LISINOPRIL 10 MG TABLET PO SCH ×2 (16:45→18:17)
[2020-08-12] MEDS: POTASSIUM CHLORIDE 20 MEQ TABLET.ER. PO SCH ×2 (16:45→18:18)
[2020-08-12] MEDS ORDERED: MELATONIN 3 MG TABLET PO PRN ×2 (16:45)
[2020-08-12] MEDS: FUROSEMIDE 40 MG TABLET PO SCH ×2 (16:45→18:17)
--- NOTE | 2020-08-12 16:54 | NUR ---
NSG NOTE; HOME HEALTH PT HAS [facility] AND THEY ARE AWARE OF HER ADMISSION
--- NOTE | 2020-08-12 16:58 | HP ---
ADMIT DATE: 08/12/2020 HISTORY OF PRESENT ILLNESS: The patient is a 64-year-old female patient who presented to the Emergency Room with chief complaint of chest tightness and shortness of breath that began around 05:00 this morning. She rated her pain at about 5/10 that is not radiating. Denied any nausea or vomiting. Denied any diaphoresis, but did complain of shortness of breath. She denied any cough or fever. She took 2 of her nebulized treatment without much improvement. Pain is described as tightness. She was evaluated in the Emergency Room and was extensively investigated. Her EKG showed that she was in normal sinus rhythm at a rate of 88 beats per minute with left axis deviation, nonspecific ST changes. Her chest x-ray showed no new convincing acute radiographic abnormality identified allowing for beam attenuation by the soft tissue. Her lab work continued to show microcytic hypochromic anemia and her chemistry was mostly unremarkable. Her first set of cardiac enzymes showed troponin to be less than 0.017. The patient was admitted to do 2 more sets of cardiac enzyme and to check her fasting lipid profile and consult the loading machine operator helper. PAST MEDICAL HISTORY: Significant for morbid obesity, obstructive sleep apnea, chronic obstructive pulmonary disease, type 2 diabetes, hypertension. She has chronic diastolic congestive heart failure, chronic hypercapnic respiratory failure, type 2 diabetes, microcytic hypochromic anemia. PAST SURGICAL HISTORY: Unremarkable. ALLERGIES: She has no known drug allergies. MEDICATIONS: She is currently on following medications: She is on albuterol sulfate by nebulizer 4 times a day, alprazolam 0.5 mg twice a day, ascorbic acid 500 mg daily, aspirin 81 mg once a day, atorvastatin calcium 20 mg at bedtime, cholecalciferol vitamin D3 50,000 units once a week, cyanocobalamin 1 tablet once a day, Colace 100 mg twice a day, ferrous sulfate 325 mg once a day, fluoxetine or Prozac 20 mg once a day, furosemide 40 mg once a day, lisinopril 10 mg once a day, melatonin 10 mg at bedtime, metformin 500 mg twice a day, potassium chloride 20 mEq once a day, and Anoro Ellipta 1 inhalation 4 times a day. FAMILY HISTORY: Noncontributory. SOCIAL HISTORY: She is an ex-smoker, quit about 4 years ago. She denied any alcohol or drug use. She is single, lives independently in an apartment in [facility]. REVIEW OF SYSTEMS: The patient denied any cataract, glaucoma or macular degeneration. Denied any earache, tinnitus or sensorineural deafness. Denied any nosebleeds, stuffy nose or postnasal drip. Denied any sore throat, sore tongue, toothache, hoarseness of voice or difficulty swallowing. Denied any nausea, vomiting, diarrhea or constipation. Denied any hematemesis, melena or hematochezia. Denied any dysuria, frequency or hematuria. Did complain of dyspnea on exertion as well as orthopnea and occasional paroxysmal nocturnal dyspnea. She actually sleeps in her recliner. PHYSICAL EXAMINATION: GENERAL: On arrival to the Emergency Room, she was pale, but not jaundiced, cyanosed or thyromegaly. No jugular venous distention. No lower limb edema. VITAL SIGNS: Her heart rate was 88, blood pressure was 114/75, temperature was 98.3, respiratory rate was 18 and oxygen saturation was 97% on 3 liters of oxygen. HEAD, EYES, EARS, NOSE AND THROAT: Showed normocephalic, atraumatic. NECK: Supple. HEART: Showed normal first and second heart sounds. No gallop, rub or murmur. CHEST: Clear to auscultation. No crepitation or rhonchi. The patient has scattered rhonchi bilaterally. ABDOMEN: Distended, soft, nontender. NEUROLOGIC: She was awake, alert, responding appropriately. All cranial nerves intact. EXTREMITIES: She moves extremities without difficulty. LABORATORY DATA: Her lab work on arrival showed a white cell count of 10,300, hemoglobin 8.8, hematocrit 29.9, MCV 75 and platelet count of 409,000 with normal manual differential. Her chemistry showed a serum sodium 140, potassium 3.6, chloride 99, bicarbonate 32, anion gap of 9, BUN 21, creatinine 0.9. Estimated GFR was 63 mL per minute. Her glucose 131, calcium was 9.2. Her bilirubin, AST, ALT, alkaline phosphatase were normal. Her beta natriuretic peptide was 157. Total protein 7, albumin 3.4. She had at least 2 sets of cardiac enzymes that ruled out myocardial infarction. Her troponin was less than 0.017 x 2. Urinalysis was also mostly unremarkable. The patient has clear yellow urine with pH of 6, specific gravity 1.025, a small amount of protein. The urine was negative for glucose, ketones, blood, nitrite, and leukocyte esterase. She apparently was tested for coronavirus on 06/28/2020 and was negative. She was swabbed again at the Emergency Room and the result of which is still pending at the time of this dictation. PLAN: My plan is to reconcile all her medications. We will start her on IV steroids and bronchodilators and follow her closely on a daily basis. HORACE GARCIA MD DR: OMER/diego JOB#: [id number] / [id number]
[2020-08-12] MEDS ORDERED: ALBUTEROL SULFATE 8GM INHALER. INH PRN (17:00)
[2020-08-12] MEDS ORDERED: NON FORMULARY ITEM (Umeclidinium Brm/Vilanterol Tr (Anoro Ellipta 62.5-25 Mcg Inh) 1 EACH) IH SCH (17:00)
[2020-08-12] MEDS: FLUTICASONE/VILANTEROL 100/25 INHALER. INH SCH (18:18)
[2020-08-12] MEDS ORDERED: DEXTROSE 50% 25 GM / 50ML DISP.SYRIN. IV PRN (19:30)
[2020-08-12 20:31] VITALS: BP 102/68
[2020-08-12] MEDS ORDERED: FLU VACC QS 2020-21(6MOS+)/PF 0.5 ML SYRINGE. VAX IM ONE (21:00)
[2020-08-12] MEDS ORDERED: metFORMIN 500 MG TABLET PO SCH (21:00)
[2020-08-12] MEDS: metFORMIN 500 MG TABLET PO SCH (21:33)
[2020-08-12] MEDS: ATORVASTATIN CALCIUM 20 MG TABLET PO SCH (21:33)
[2020-08-12] MEDS: ALPRAZolam 0.25 MG TABLET PO SCH (21:33)
[2020-08-12] MEDS: methylPREDNISolone SOD SUCC PF 40 MG/ML VIAL. IV SCH (22:00)
[2020-08-12 22:02] VITALS: BP 109/64
[2020-08-13 06:16] VITALS: BP 103/60
[2020-08-13] MEDS: methylPREDNISolone SOD SUCC PF 40 MG/ML VIAL. IV SCH ×2 (07:25→14:16)
[2020-08-13 07:57] LABS: CALCIUM 8.8 mg/dL (8.5-10.1); CREATININE 0.8 mg/dL (0.6-1.0); GFR 72.4; POTASSIUM 4.3 mmol/L (3.5-5.1)
[2020-08-13] MEDS: DOCUSATE SODIUM 100 MG CAPSULE PO SCH (08:22)
[2020-08-13] MEDS: FLUoxetine HCL 20 MG CAPSULE PO SCH (08:22)
[2020-08-13] MEDS: ASCORBIC ACID 500 MG TABLET PO SCH (08:22)
[2020-08-13] MEDS: ALPRAZolam 0.25 MG TABLET PO SCH ×2 (08:22→20:42)
[2020-08-13] MEDS: ASPIRIN CHEWABLE 81 MG TABLET. PO SCH (08:22)
[2020-08-13] MEDS: FUROSEMIDE 40 MG TABLET PO SCH (08:23)
[2020-08-13] MEDS: FLUTICASONE/VILANTEROL 100/25 INHALER. INH SCH (08:23)
[2020-08-13] MEDS: POTASSIUM CHLORIDE 20 MEQ TABLET.ER. PO SCH (08:23)
[2020-08-13] MEDS: FERROUS SULFATE 325 MG TABLET. PO SCH (08:23)
[2020-08-13] MEDS: metFORMIN 500 MG TABLET PO SCH ×2 (08:23→17:14)
[2020-08-13] MEDS: LISINOPRIL 10 MG TABLET PO SCH (08:24)
[2020-08-13] MEDS: CYANOCOBALAMIN (VITAMIN B-12) 250 MCG TABLET. PO SCH (08:27)
[2020-08-13 11:00] VITALS: BP 110/65
[2020-08-13 15:00] VITALS: BP 109/60
--- NOTE | 2020-08-13 16:36 | PN ---
DATE: 08/13/2020 SUBJECTIVE: The patient is resting, slightly propped up in bed, in no apparent distress. She is generally feeling much improved. She has at least 4 sets of cardiac enzymes that ruled out myocardial infarction. She has had no more chest pain. Her shortness of breath is improving. PHYSICAL EXAMINATION: GENERAL: When I examined her, she was resting slightly propped up in bed, in no apparent distress. She was pale, but no jaundice, cyanosis or thyromegaly. No jugular venous distention. No lower limb edema. VITAL SIGNS: Her heart rate was 82, blood pressure was 110/65, temperature was 98.1, respiratory rate was 20, and oxygen saturation was 98% on 3 liters of oxygen. HEAD, EYES, EARS, NOSE AND THROAT: Showed normocephalic, atraumatic. NECK: Supple. HEART: Showed normal first and second heart sounds. No gallop, rub or murmur. CHEST: Shows central trachea, equal bilateral expansion, air entry, vesicular breath sounds. Very few scattered rhonchi. I could not appreciate any crepitation. ABDOMEN: Distended, soft, nontender. NEUROLOGIC: She is awake, alert, responding appropriately. She moves all extremities without difficulty. She ambulates without assistance or assistive devices. Her intake and output over the last 24 hours was incompletely recorded. LABORATORY DATA: Her lab work as of this morning showed that her serum sodium was 137, potassium 4.3, chloride 100, bicarbonate 29, anion gap of 8, BUN 18, creatinine 0.8, estimated GFR was 72 mL per minute. Her glucose 136, calcium was 8.8. Her serum triglycerides was 42, total cholesterol 168, LDL was 69, VLDL was 8, and HDL cholesterol was 91, and the ratio was 1. ASSESSMENT: 1. Chest pain, atypical, acute myocardial infarction ruled out. 2. Chronic obstructive pulmonary disease exacerbation. 3. Morbid obesity, obstructive sleep apnea. 4. Type 2 diabetes mellitus. 5. Hypertension. 6. Chronic diastolic congestive heart failure. 7. Chronic hypercapnic respiratory failure. 8. Microcytic hypochromic anemia. PLAN: To continue with all her current medication. On her last admission in October, she had had an echocardiogram, which showed that the patient's left ventricular systolic function is normal, ejection fraction is within normal range. The ejection fraction was 55-60%. She has normal left ventricular segmental wall motion. The patient coronavirus by PCR was not detected. We will repeat all her lab works again tomorrow and would cut down her steroids to twice a day today and evaluate her again tomorrow. HORACE GARCIA MD DR: OMER/diego JOB#: [id number] / [id number]
[2020-08-13 19:35] VITALS: BP 128/71
[2020-08-13] MEDS: ATORVASTATIN CALCIUM 20 MG TABLET PO SCH (20:42)
[2020-08-13 23:21] VITALS: BP 115/65
--- NOTE | 2020-08-14 01:20 | NUR ---
Last evening pt was in her room watching TV. She was pleasant and social with staff. She is pleased she is covid negative and looking forward to discharging on Saturday.
[2020-08-14 06:12] VITALS: BP 117/71
[2020-08-14] MEDS: methylPREDNISolone SOD SUCC PF 40 MG/ML VIAL. IV SCH ×2 (06:22→17:08)
[2020-08-14 07:28] LABS: CALCIUM 8.9 mg/dL (8.5-10.1); CREATININE 0.8 mg/dL (0.6-1.0); GFR 72.4; POTASSIUM 3.7 mmol/L (3.5-5.1)
[2020-08-14 07:43] LABS: HEMATOCRIT 28.1 % (36.0-47.0); HEMOGLOBIN 8.3 g/dL (12.0-15.5); RED BLOOD COUNT 3.78 x10^6/uL (3.50-5.40); RED CELL DISTRIBUTION WIDTH 17.8 % (11.5-14.5); WHITE BLOOD COUNT 12.5 x10^3/uL (4.0-11.0)
[2020-08-14] MEDS: FLUTICASONE/VILANTEROL 100/25 INHALER. INH SCH (09:00)
[2020-08-14] MEDS: ALPRAZolam 0.25 MG TABLET PO SCH ×2 (09:37→20:19)
[2020-08-14] MEDS: POTASSIUM CHLORIDE 20 MEQ TABLET.ER. PO SCH (09:37)
[2020-08-14] MEDS: LISINOPRIL 10 MG TABLET PO SCH (09:37)
[2020-08-14] MEDS: DOCUSATE SODIUM 100 MG CAPSULE PO SCH (09:37)
[2020-08-14] MEDS: FUROSEMIDE 40 MG TABLET PO SCH (09:37)
[2020-08-14] MEDS: FLUoxetine HCL 20 MG CAPSULE PO SCH (09:37)
[2020-08-14] MEDS: metFORMIN 500 MG TABLET PO SCH ×2 (09:37→17:08)
[2020-08-14] MEDS: ASPIRIN CHEWABLE 81 MG TABLET. PO SCH (09:37)
[2020-08-14] MEDS: CYANOCOBALAMIN (VITAMIN B-12) 250 MCG TABLET. PO SCH (09:38)
[2020-08-14] MEDS: FERROUS SULFATE 325 MG TABLET. PO SCH (09:38)
[2020-08-14] MEDS: ASCORBIC ACID 500 MG TABLET PO SCH (09:40)
[2020-08-14] MEDS ORDERED: ALBUTEROL SULFATE 8GM INHALER. INH PRN (10:55)
[2020-08-14 11:00] VITALS: BP 106/65
[2020-08-14] MEDS ORDERED: ACETAMINOPHEN 325 MG TABLET PO PRN (11:00)
[2020-08-14 15:00] VITALS: BP 125/66
--- NOTE | 2020-08-14 16:59 | PN ---
DATE: 08/14/2020 SUBJECTIVE: The patient is sitting at the edge of the bed comfortably in no apparent distress. She stated that when she woke up this morning, she developed severe back pain that is aggravated by movement and also when she takes a deep breath, had cough with scanty whitish sputum. PHYSICAL EXAMINATION: GENERAL: When I examined her this morning, she looked well and was in no apparent distress. She was somewhat pale, but no jaundice, cyanosis or thyromegaly. No jugular venous distention or limb edema. VITAL SIGNS: Her heart rate was 72, blood pressure was 106/65, temperature was 98.1, respiratory rate was 18 and oxygen saturation was 98% on 3 liters of oxygen. HEAD, EYES, EARS, NOSE, AND THROAT: Showed normocephalic, atraumatic. NECK: Supple. HEART: Showed normal first and second heart sounds with no gallop, rub or murmur. CHEST: Clear to auscultation. No crepitation or rhonchi. ABDOMEN: Distended, soft, nontender. No guarding or rigidity. No organomegaly. All hernial orifices intact. Bowel sounds normal. NEUROLOGIC: She is awake, alert, responding appropriately. All cranial nerves intact. She moves extremities without difficulty, has marked tenderness on both thoracic and lumbar spine. Her intake over the last 24 hours was 1000. No output was recorded. LABORATORY DATA: As of this morning, her white cell count was 12,500, hemoglobin 8, hematocrit 28, MCV 74, and platelet count of 101,000. Her serum sodium was 138, potassium 3.7, chloride 99, bicarbonate 31, anion gap of 8, BUN 22, creatinine 0.8, estimated GFR was 72 mL per minute. Her glucose 120, calcium was 8.9. ASSESSMENT: 1. Chest pain, atypical, acute myocardial infarction ruled out. 2. Chronic obstructive pulmonary disease exacerbation. 3. Morbid obesity, obstructive sleep apnea. 4. Type 2 diabetes mellitus. 5. Hypertension. 6. Chronic diastolic congestive heart failure, seems to be clinically stable. 7. Chronic hypercapnic respiratory failure. 8. Microcytic hypochromic anemia. 9. New onset of back pain. PLAN: My plan is to continue with all her current medication. I will arrange for her to have x-ray of the thoracic and lumbar spine, and if there is no evidence of any compression fracture or any other abnormality, we might have to consider doing a total body bone scan. HORACE GARCIA MD DR: OMER/diego JOB#: [id number] / [id number]
[2020-08-14 19:57] VITALS: BP 119/63
[2020-08-14] MEDS: ATORVASTATIN CALCIUM 20 MG TABLET PO SCH (20:19)
[2020-08-14 23:50] VITALS: BP 117/65
[2020-08-15] MEDS: methylPREDNISolone SOD SUCC PF 40 MG/ML VIAL. IV SCH (05:09)
[2020-08-15 06:23] VITALS: BP 117/71
[2020-08-15 06:30] LABS: HEMATOCRIT 28.5 % (36.0-47.0); HEMOGLOBIN 8.5 g/dL (12.0-15.5); RED BLOOD COUNT 3.82 x10^6/uL (3.50-5.40); RED CELL DISTRIBUTION WIDTH 17.1 % (11.5-14.5); WHITE BLOOD COUNT 12.4 x10^3/uL (4.0-11.0)
[2020-08-15 06:50] LABS: ALBUMIN 2.8 g/dL (3.4-5.0); ALBUMIN/GLOBULIN RATIO 0.7 (1.0-1.7); ALK PHOS 96 U/L (46-116); ALT (SGPT) 10 U/L (14-59); ANION GAP 7 (6-14); AST (SGOT) < 5 U/L (15-37); BLOOD UREA NITROGEN 23 mg/dL (7-20); BUN/CREATININE RATIO 26 (6-20); C REACTIVE PROTEIN 9.2 mg/L (0-3.3); CALCIUM 8.9 mg/dL (8.5-10.1); CARBON DIOXIDE 34 mmol/L (21-32); CHLORIDE 99 mmol/L (98-107); CREATININE 0.9 mg/dL (0.6-1.0); GFR 63.2; GLUCOSE 124 mg/dL (70-99); SODIUM 140 mmol/L (136-145); TOTAL BILIRUBIN 0.2 mg/dL (0.2-1.0); TOTAL PROTEIN 6.6 g/dL (6.4-8.2)
[2020-08-15] MEDS: FUROSEMIDE 40 MG TABLET PO SCH (08:27)
[2020-08-15] MEDS: DOCUSATE SODIUM 100 MG CAPSULE PO SCH (08:28)
[2020-08-15] MEDS: ASCORBIC ACID 500 MG TABLET PO SCH (08:28)
[2020-08-15] MEDS: POTASSIUM CHLORIDE 20 MEQ TABLET.ER. PO SCH (08:28)
[2020-08-15] MEDS: ASPIRIN CHEWABLE 81 MG TABLET. PO SCH (08:28)
[2020-08-15] MEDS: FLUoxetine HCL 20 MG CAPSULE PO SCH (08:28)
[2020-08-15] MEDS: FERROUS SULFATE 325 MG TABLET. PO SCH (08:28)
[2020-08-15] MEDS: metFORMIN 500 MG TABLET PO SCH (08:28)
[2020-08-15] MEDS: LISINOPRIL 10 MG TABLET PO SCH (08:28)
[2020-08-15] MEDS: ALPRAZolam 0.25 MG TABLET PO SCH (08:29)
[2020-08-15] MEDS: FLUTICASONE/VILANTEROL 100/25 INHALER. INH SCH (08:30)
[2020-08-15] MEDS: CYANOCOBALAMIN (VITAMIN B-12) 250 MCG TABLET. PO SCH (08:30)
[2020-08-15 10:42] VITALS: BP 121/82
--- NOTE | 2020-08-15 10:48 | RAD ---
EXAM: CT Lumbar Spine without IV contrast INDICATION: Reason: BACK PAIN / Spl. Instructions: / History: TECHNIQUE: Multi-detector row CT images were obtained through the lumbar spine without the use of IV contrast. Post-processing sagittal and coronal reconstructed images were obtained for interpretation. All CT scans performed at this facility utilize dose optimization techniques as appropriate to the exam, including the following: Automated exposure control and adjustment of the mA and/or KV according to patient size (this includes techniques or standardized protocols for targeted exams where dose is indication/reason for exam). COMPARISON: None FINDINGS: The lowest fully formed disc is referred to as the L5-S1 level. ALIGNMENT: Subtle anterolisthesis of L4 on L5 of 2 mm is present. Lumbar spinal alignment otherwise notable for minimal rightward convexity scoliotic curvature, apex at L3-L4. No listhesis otherwise seen. OSSEOUS: Bones are diffusely demineralized. No fracture or aggressive osseous lesions noted. Vertebral body heights are preserved. Visualized sacrum and iliac bones are unremarkable. DISC SPACES: Varying degrees of narrowing at multiple levels throughout the lumbar spine most conspicuous at L5-S1 where near vdzh-wr-scim contact is apparent along with vacuum phenomenon. FACET JOINTS: Multilevel facet hypertrophic change most conspicuous at L3-L4 through L5-S1 bilaterally, right greater than left. SPINAL CANAL: At L1-L2, diffuse disc bulge with loss of height along with ossification of the ligamentum flavum and results in moderate central canal stenosis. Associated disc loss of height results in moderate left and mild right bilateral foraminal stenosis. At L2-L3, diffuse disc bulge with loss of height likely flattens the ventral thecal sac. A disc protrusion is difficult to exclude at this level. It may be right paracentral with associated marked narrowing of the right lateral recess (image 32 of axial series 2). There is mild bilateral foraminal narrowing. At L3-L4, diffuse disc bulge along with bilateral facet hypertrophy results in mild right, mild to moderate left foraminal stenosis and likely marked central canal stenosis due to combination of facet hypertrophy, ligamentum flavum thickening and diffuse disc bulge. At L4-L5, diffuse disc bulge and anterolisthesis along with bilateral facet hypertrophy results in moderate bilateral foraminal stenosis and mild to moderate central canal stenosis. At L5-S1, marked bilateral facet hypertrophy results in moderate to severe bilateral foraminal stenosis in association with disc loss of height. The central canal appears patent. Moderate bilateral lateral recess narrowing is likely present due to bulky bilateral facet hypertrophy. NEUROFORAMINA: As described SOFT TISSUES: Scattered arterial calcifications. IMPRESSION: Multilevel lumbar spinal degenerative spondylosis as described, likely worst at L3-L4 the central canal. Electronically signed by: John Vasquez MD (08/15/2020 10:45 AM) [id number]
--- NOTE | 2020-08-15 11:28 | RAD ---
EXAM: CT Thoracic Spine without IV contrast INDICATION: Reason: BACK PAIN / Spl. Instructions: / History: TECHNIQUE: Multi-detector row CT images were obtained through the thoracic spine without the use of IV contrast. Post-processing sagittal and coronal reconstructed images were obtained for interpretation. All CT scans performed at this facility utilize dose optimization techniques as appropriate to the exam, including the following: Automated exposure control and adjustment of the mA and/or KV according to patient size (this includes techniques or standardized protocols for targeted exams where dose is indication/reason for exam). COMPARISON: Lumbar spine CT obtained the same day. FINDINGS: ALIGNMENT: Alignment is within normal limits. There is mild exaggeration of normal thoracic kyphosis.. OSSEOUS: No evidence of fracture or bone destruction. The bones are mildly demineralized.. DISC SPACES: Multilevel disc degenerative change with endplate osteophytic spurring is present most notably in the lower thoracic spine. FACET JOINTS: Unremarkable. SPINAL CANAL: Unremarkable. NEUROFORAMINA: Unremarkable. SOFT TISSUES: Unremarkable. IMPRESSION: Multilevel thoracic spinal degenerative spondylosis. No fracture, malalignment or aggressive osseous lesions noted. Electronically signed by: John Vasquez MD (08/15/2020 11:26 AM) [id number]
--- NOTE | 2020-08-15 12:41 | NUR ---
NSG NOTE; DISCHARGE VERBAL AND WRITTEN DISCHARGE INSTRUCTIONS GIVEN TO PT WITH VERBAL UNDERSTANDING. ABX RX X2 TRANSMITTED TO PT'S PHARMACY DISCHARGED TO HOME AT 1230 VIA PERSONAL W/C ACCOMP BY ALEVISM MEMBERS WHO PICKED HER UP Addendum: 08/15/20 at 1243 by UMA RAM RN WRONG CHART
--- NOTE | 2020-08-15 12:43 | NUR ---
NSG NOTE; DISCHARGE NOTE FOR 1241 ON WRONG PT NOT FOR THIS PATIENT
[2020-08-15 14:33] VITALS: BP 112/65
--- NOTE | 2020-08-15 14:37 | DISCH ---
HOME HEALTH DISCHARGE/MEDS DISCHARGE INFORMATION: Discharge Date: Aug 15, 2020 Final Diagnosis: Problems Medical Problems: (1) Chest tightness Status: Acute (2) Dyspnea Status: Acute Condition on Discharge: Stable CODE STATUS: Code Status: Full HOME HEALTH: Face to Face: I certify this patient is under my care and that I, or a nurse practitioner or physician's food and beverage assistant working with me, had a face to face encounter that meets the physician face to face encounter requirements with this patient on 020 Medical Condition(s): COPD Fci For: Assess Cardiopulm Status Physical Therapy For: Evalulation/Treatment Occupational Therapy For: Evaluation/Treatment Homebound Status Met By: Limited distance walking POST DISCHARGE ORDERS: Activity Instructions for Disc: Resume previous activity DIET AFTER DISCHARGE: ADA CERTIFICATION STATEMENT: Certification Statement: Based on the above finding, I certify that this patient is confined to the home and needs intermittent halfway care, physical therapy and/or speech therapy, or continues to need occupational therapy.~ This patient is under my care, and I have initiated the establishment of the plan of care.~ This patient will be followed by myself or a community physician who will periodically review the plan of care. DISCHARGE MEDICATIONS: Home Meds Active Scripts Potassium Chloride (KLOR-CON M20) 20 Meq Tab.er.prt, 1 TAB PO DAILY for lasix for 30 Days, #30 TAB 0 Refills Prov:HORACE GARCIA MD 07/01/20 Furosemide (FUROSEMIDE) 40 Mg Tablet, 1 TAB PO DAILY for chf for 30 Days, #30 TAB 5 Refills Prov:HORACE GARCIA MD 07/01/20 Reported Medications Alprazolam (ALPRAZOLAM) 0.25 Mg Tablet, 1 TAB PO BID for ANXIETY 08/12/20 Melatonin (MELATONIN) 10 Mg Tablet.er, 1 TAB PO QHS for sleep 08/12/20 Umeclidinium Brm/Vilanterol Tr (ANORO ELLIPTA 62.5-25 MCG INH) 1 Each Disk.w.d ev, 1 EACH IH DAILY for COPD 06/13/20 Metformin HCl (Metformin HCl) 500 Mg/5 Ml Solution, 500 MG PO BID for DM, MISC 06/13/20 Lisinopril (LISINOPRIL) 10 Mg Tablet, 1 TAB PO DAILY for HTN, #30 TAB 5 Refills 06/13/20 Fluoxetine Hcl (PROZAC) 20 Mg Capsule, 1 CAP PO DAILY for DEPRESSION, #30 CAP 1 Refill 06/13/20 Ferrous Sulfate (FERROUS SULFATE) 325 Mg Tablet, 1 TAB PO DAILY for SUPPLEMENT, #30 TAB 3 Refills 06/13/20 Docusate Sodium (COLACE) 100 Mg Capsule, 100 MG PO DAILY for CONSTIPATION, CAP 06/13/20 Cyanocobalamin (Vitamin B-12) (B-12) 500 Mcg Tablet, 1 TAB PO DAILY for SUPPLEMENT for 30 Days, #30 TAB 0 Refills 06/13/20 Cholecalciferol (Vitamin D3) (D3-50) 50,000 Unit Capsule, 1 CAP PO WEEKLY for SUPPLEMENT for 28 Days, #4 CAP 0 Refills 06/13/20 Atorvastatin Calcium (LIPITOR) 20 Mg Tablet, 20 MG PO QHS for FOR CHOLESTEROL, #30 TAB 0 Refills 06/13/20 Aspirin (Children's Aspirin) 81 Mg Tab.chew, 1 TAB PO DAILY for PREVENTATIVE for 30 Days, #30 TAB 0 Refills 06/13/20 Ascorbic Acid (VITAMIN C) 500 Mg Capsule.er, 1 CAP PO DAILY for SUPPLEMENT for 30 Days, #30 CAP 0 Refills 06/13/20 Albuterol Sulfate (ALBUTEROL SULFATE NEB SOLN) 0.63 Mg/3 Ml Vial.neb, 1 VIAL NEB QID for COPD, #150 ML 1 Refill 06/13/20 HORACE GARCIA MD Aug 15, 2020 14:37
--- NOTE | 2020-08-15 16:03 | NUR ---
NSG NOTE; DISCHARGE VERBAL AND WRITTEN DISCHARGE INSTRUCTIONS GIVEN TO PT WITH VERBAL UNDERSTANDING WRITTEN RX X2 GIVEN TO PT DISCHARGE TO HOME AT 1600 VIA W/C WITH O2 ACCOMP BY SISTER WHO PICKED HER UP
--- NOTE | 2020-08-15 21:28 | DS ---
DATE OF DISCHARGE: 08/15/2020 HOSPITAL COURSE: The patient is a 64-year-old female patient who was admitted originally with complaint of chest tightness and shortness of breath that began around 6:00 in the morning of the admission day. Her pain was rated about 5/10 that is not radiating. She denied any nausea or vomiting. Denied any diaphoresis. Did complain of shortness of breath. She denied any cough, fever. She took 2 of her nebulized treatment without much improvement. She described her pain as chest tightness. She was evaluated in the Emergency Room. Her EKG showed she was in normal sinus rhythm at a rate of 88 beats per minute, left axis deviation and nonspecific ST changes. Her chest x-ray showed no new convincing acute radiographic abnormality identified allowing ____ attenuation. Her lab work showed again that she has microcytic hypochromic anemia and her chemistry was mostly unremarkable. Her first set of cardiac enzymes showed troponin to be less than 0.017. She had 3 sets of cardiac enzymes showed troponin to be less than 0.017. She was started on Solu-Medrol. We continued all her other medications and she did very well except she continued to complain of pain in her back and we did a CT scan of the thoracic and lumbar spine. Her lumbar spine showed that the patient has multilevel lumbar spinal degenerative spondylosis as described, slightly worse at L3-L4. Her thoracic spine showed multilevel thoracic spinal degenerative spondylosis, no fracture or malalignment or aggressive osseous lesion noted. As the patient has remained stable, has been up and about walking with a walker with physical therapy, a decision was made to discharge her home on a tapering course of steroids and was discharged home with home health to continue the process of physical and occupational therapy. PHYSICAL EXAMINATION: GENERAL: When I saw her today, she looked well and was clearly in no apparent respiratory distress. No pallor, jaundice or cyanosis. No lymphadenopathy or thyromegaly. No jugular venous distention or limb edema. VITAL SIGNS: Her heart rate was 66, blood pressure was 112/65, temperature 97.8, respiratory rate 20, and oxygen saturation was 98% on 3 liters of oxygen. HEAD, EYES, EARS, NOSE AND THROAT: Showed normocephalic, atraumatic. NECK: Supple. HEART: Showed normal first and second heart sounds. No gallop, rub or murmur. CHEST: Clear to auscultation. No crepitation or rhonchi. ABDOMEN: Distended, soft, nontender. No guarding or rigidity. No organomegaly. All hernial orifices intact. Bowel sounds normal. NEUROLOGIC: She is awake, alert, responding appropriately. All cranial nerves are intact. She moves extremities without difficulty. She ambulates with a walker. Her intake was 900, no output was recorded. LABORATORY DATA: Her lab work as of this morning showed a white cell count 12,400, hemoglobin 8.5, hematocrit 28.5, MCV 75 and platelet count 409,000. Serum sodium was 140, potassium 4, chloride 99, bicarbonate 34, anion gap of 7, BUN 23, creatinine 0.9, estimated GFR was 63 mL per minute. Her glucose 124, calcium was 8.9. Total bilirubin, AST, ALT, alkaline phosphatase were normal. Total protein was 6.6, albumin 2.8. DISCHARGE MEDICATIONS: She was discharged home to continue on albuterol sulfate by nebulizer 4 times a day, alprazolam 0.25 mg twice a day, ascorbic acid 500 mg for vitamin C 1 tablet once a day, aspirin 81 mg once a day, atorvastatin calcium 20 mg at bedtime, ergocalciferol vitamin D3 50,000 units once a week, cyanocobalamin for B12 500 mcg once a day, docusate sodium, Colace 100 mg twice a day, ferrous sulfate 325 mg daily, fluoxetine for Prozac 20 mg once a day, furosemide 40 mg once a day, lisinopril 10 mg once a day, melatonin 10 mg once a day, metformin 500 mg twice a day and potassium chloride 20 mEq once a day and Anoro Ellipta 62.5/25 one tablet once a day. She was discharged also on a tapering course of steroid. FINAL DISCHARGE DIAGNOSES: 1. Chest pain, atypical, acute myocardial infarction ruled out. 2. Chronic obstructive pulmonary disease. 3. Morbid obesity, obstructive sleep apnea. 4. Type 2 diabetes mellitus. 5. Hypertension. 6. Chronic diastolic congestive heart failure, seems to be clinically stable. 7. Chronic hypercapnic respiratory failure. 8. Microcytic hypochromic anemia. 9. Chronic back pain due to multilevel degenerative disk disease. HORACE GARCIA MD DR: OMER/diego JOB#: [id number] / [id number]
[2020-08-19] MEDS ORDERED: CHOLECALCIFEROL (VITAMIN D3) 50,000 UNIT CAPSULE PO SCH (09:00)
== END 2020-08-15 16:03 | disposition home health service (06) ==
LOC: ER 08:53 → 1 SOUTH 09:51 → OBSVTOIN 16:30 → INTOOBSV 16:30
PROVIDERS: ADMIT Internal Medicine; ATTEND Internal Medicine
DX: R07.89 Other chest pain (principal); J44.1 Chronic obstructive pulmonary disease with (acute) exacerbation; Z20.828 Contact with and (suspected) exposure to other viral communicable diseases; I50.32 Chronic diastolic (congestive) heart failure; J96.12 Chronic respiratory failure with hypercapnia; D50.9 Iron deficiency anemia, unspecified; E11.9 Type 2 diabetes mellitus without complications; E66.01 Morbid (severe) obesity due to excess calories; G47.33 Obstructive sleep apnea (adult) (pediatric); G89.29 Other chronic pain; M47.9 Spondylosis, unspecified; I11.0 Hypertensive heart disease with heart failure; Z86.73 Personal history of transient ischemic attack (TIA), and cerebral infarction without residual deficits; Z87.891 Personal history of nicotine dependence; Z96.649 Presence of unspecified artificial hip joint; Z23 Encounter for immunization
CPT/HCPCS: 36415; 71045; 72128; 72131; 80048; 80053; 80061; 82947; 83880; 84484; 85025; 85027; 86140; 90471; 90686; 93005; 96374; 96376; 99285; G0378; J2920; J2930; U0003; G0379; J7613

== ENCOUNTER → 2021-01-23 | Outpatient (CLI) | payer OTHER, MEDICAID ==
[~2021-01-23] MED LIST changes: +LISI10TA16 PO; -LISI10TA2 PO; +MELA10TA3 PO; +MELA1TAB44 PO; -MELA1TAB9 PO
--- NOTE | 2021-01-23 16:12 | RAD ---
EXAM: Bilateral screening mammogram. HISTORY: 65-year-old female presents for screening mammography. TECHNIQUE: Full-field digital craniocaudal and mediolateral oblique views of both breasts an exaggera jonathan clinical view of the left breast are obtained for evaluation. Computer aided detection was tori kim COMPARISON: None. This is a baseline mammogram. BREAST PARENCHYMAL DENSITY: Level A - Mostly fat. FINDINGS: There is an asymmetry within the subareolar aspect of the left breast. There are few benign calcifications within both breasts. There is no architectural distortion. IMPRESSION: BI-RADS Category 0: Incomplete. Additional imaging needed. RECOMMENDATION: Further evaluation with a full field true lateral and spot compression craniocaudal v iew of the left breast to assess asymmetry within the subareolar location is recommended, given the a bsence of prior studies to confirm stability. Sonographic imaging may also be performed if deemed ind icated based on additional mammographic findings. If your mammogram demonstrates that you have dense breast tissue, which could hide abnormalities, and if you have other risk factors for breast cancer that have been identified, you might benefit from s upplemental screening tests that may be suggested by your ordering physician. Dense breast tissue, i n and of itself, is a relatively common condition. This information is not provided to cause undue c oncern, but rather to raise your awareness and to promote discussion with your physician regarding th e presence of other risk factors, in addition to dense breast tissue. A report of your mammography re sults will be sent to you and your physician. You should contact your physician if you have any ques tions or concerns regarding this report. Mammography is a sensitive method for finding small breast cancers, but it does not detect them all a nd is not a substitute for careful clinical examination. A negative mammogram does not negate a clin ically suspicious finding and should not result in delay in biopsying a clinically suspicious abnorma lity. PQRS compliance statement - Patient information was entered into a reminder system with a target due date for the next mammogram. "Our facility is accredited by the [employer] Mammography [employer]." Electronically signed by: Arpita Castellanos MD (01/23/2021 4:09 PM) [id number]
== END ==
LOC: MAMMO 09:33
PROVIDERS: ATTEND Family Medicine
DX: Z12.31 Encounter for screening mammogram for malignant neoplasm of breast (principal)
CPT/HCPCS: 77067

== ENCOUNTER → 2021-05-10 | Outpatient (CLI) | payer OTHER, MEDICAID ==
--- NOTE | 2021-05-10 16:24 | RAD ---
DATE: 05/10/2021 EXAM: US BREAST LT, MG DIAGNOSTICUNILAT MAMMO HISTORY: Recalled from screening mammogram for left breast subareolar focal asymmetry COMPARISON: Screening mammogram 01/23/2021 This study was interpreted with the benefit of Computerized Aided Detection (CAD). FINDINGS: Mammogram: The breast parenchyma shows scattered fibroglandular densities. The focal asymmetry in the subareola r left breast does not definitively persist on spot compression views. Ultrasound: Ultrasound of the left breast in the subareolar region was performed. At 9:00, 1 cm from the nipple t here is an ovoid, parallel, hypoechoic circumscribed mass measuring 4 x 2 x 3 mm. No posterior acoust ic shadowing or internal vascularity. IMPRESSION: Focal asymmetry in the subareolar left breast does not definitively persist on spot compr ession views. Probably benign 4 mm simple or minimally complicated cyst seen in the subareolar left b reast at 9:00, 1 cm from the nipple. Recommend 6 month follow-up ultrasound to ensure stability. BI-RADS CATEGORY: 3 PROBABLE BENIGN-SHORT TERM F/U RECOMMENDED FOLLOW-UP: 6M 6 MONTH FOLLOW-UP PQRS compliance statement: Patient information was entered into a reminder system with a target due d ate for the next mammogram. Mammography is a sensitive method for finding small breast cancers, but it does not detect them all a nd is not a substitute for careful clinical examination. A negative mammogram does not negate a clin ically suspicious finding and should not result in delay in biopsying a clinically suspicious abnorma lity. "Our facility is accredited by the [employer] Mammography [employer]." Electronically signed by: Nidhi Currie MD (05/10/2021 4:21 PM) [id number]
== END ==
LOC: MAMMO 12:12
PROVIDERS: ATTEND Family Medicine
DX: N64.89 Other specified disorders of breast (principal); R92.2 Inconclusive mammogram
CPT/HCPCS: 76641; 77065